=== PATIENT | male | born 1935 | race Caucasian/White ===

== ENCOUNTER 2016-04-16 17:37 | Emergency (ER) | payer OTHER, MEDICARE ==
[2016-04-16 17:43] VITALS: BMI 27.1
--- NOTE | 2016-04-16 18:38 | PDOC ---
History of Present Illness - General History Source: Patient, Old Records Exam Limitations: No Limitations - History of Present Illness Initial Comments: 04/16/16 18:55 The patient is a 81 year old male, with a significant past medical history of chronic matos catheter (last change 03/01/16), AFIB, prostate CA and urinary retention, who presents to the emergency department with a malfunctioning matos catheter, dysuria, frequency, hematuria, bowel incontinence and abdominal pain. He states that his last hematuria episode was 2 weeks ago, which was a small amount. He describes his abdominal pain is localized in the suprapubic region, mild in nature, without radiation. He notes that sitting exacerbates the pain and laying down alleviates the pain. He states that his bowel incontinence started today and that his bowel movements are solid in nature and nonbloody. He states that he usually gets his matos catheter changed once a month. The patient denies chest pain, shortness of breath, headache and dizziness. Denies fever, chills, nausea, vomit, diarrhea and constipation. Allergies: None Past surgical history: bilateral Hip replacement Social history: Social alcohol use. No tobacco or drug use reported Urology - Dr. Sanches <Matt Krishna - Last Filed: 04/16/16 21:36> - General History Source: Patient, Old Records Exam Limitations: No Limitations <Tobias Robert - Last Filed: 04/16/16 21:44> - General Chief Complaint: Urinary Catheter Problem Stated Complaint: URINARY PROBLEM Time Seen by Provider: 04/16/16 18:10 Past History <Matt Krishna - Last Filed: 04/16/16 21:36> - Past Medical History Cancer: Yes (PROSTATE CA) Cardiac Disorders: (a fib) Disorders: Yes (DIFFICULTY VOIDING) Hypercholesterolemia: Yes - Surgical History Orthopedic Surgery: Yes (Bilat Hip Replacement) - Immunization History Immunization Up to Date: Yes - Psycho/Social/Smoking Cessation Hx Anxiety: No Suicidal Ideation: No Smoking History: Never smoked Have you smoked in the past 12 months: No Hx Alcohol Use: Yes (SOCIAL) Drug/Substance Use Hx: No Substance Use Type: None Hx Substance Use Treatment: No <Tobias Robert - Last Filed: 04/16/16 21:44> - Past Medical History Allergies/Adverse Reactions: Allergies Allergy/AdvReac Type Severity Reaction Status Date / Time No Known Allergies Allergy Verified 04/16/16 17:43 Home Medications: Ambulatory Orders Warfarin Sodium [Coumadin] 7 mg PO ASDIR 11/27/14 Warfarin Na [Coumadin] 10 mg PO ASDIR 02/17/16 Acetaminophen [Tylenol] 650 mg PO Q4H PRN #20 tablet 04/16/16 Sulfamethoxazole/Trimethoprim [Bactrim Ds -] 1 tab PO BID #14 tablet 04/16/16 Review of Systems - Review of Systems Comments:: 04/16/16 18:55 GENERAL/CONSTITUTIONAL: No fever or chills. No weakness. HEAD, EYES, EARS, NOSE AND THROAT: No change in vision. No ear pain or discharge. No sore throat. CARDIOVASCULAR: No chest pain or shortness of breath RESPIRATORY: No cough, wheezing, or hemoptysis. GASTROINTESTINAL: +Abdominal pain, bowel incontinence. No nausea, vomiting, diarrhea or constipation. GENITOURINARY: +Dysuria, frequency and dysuria. MUSCULOSKELETAL: No joint or muscle swelling or pain. No neck or back pain. SKIN: No rash NEUROLOGIC: No headache, vertigo, loss of consciousness, or change in strength/ sensation. ENDOCRINE: No increased thirst. No abnormal weight change HEMATOLOGIC/LYMPHATIC: No anemia, easy bleeding, or history of blood clots. ALLERGIC/IMMUNOLOGIC: No hives or skin allergy. <Matt Krishna - Last Filed: 04/16/16 21:36> *Physical Exam - Vital Signs Last Vital Signs Temp Pulse Resp BP Pulse Ox 97.3 F L 89 20 206/104 99 04/16/16 17:39 04/16/16 17:39 04/16/16 17:39 04/16/16 17:39 04/16/16 17:39 - Physical Exam Comments: 04/16/16 18:56 GENERAL: Awake, alert, and fully oriented, in no acute distress HEAD: No signs of trauma, normocephalic, atraumatic EYES: PERRLA, EOMI, sclera anicteric, conjunctiva clear ENT: Auricles normal inspection, hearing grossly normal, nares patent, oropharynx clear without exudates. Moist mucosa NECK: Normal ROM, supple, no lymphadenopathy, JVD, or masses LUNGS: No distress, speaks full sentences, clear to auscultation bilaterally HEART: Regular rate and rhythm, normal S1 and S2, no murmurs, rubs or gallops, peripheral pulses normal and equal bilaterally. ABDOMEN: +Mild suprapubic tenderness. Soft, normoactive bowel sounds. No guarding, no rebound. No masses : +Chronic matos catheter. EXTREMITIES: Normal inspection, Normal range of motion, no edema. No clubbing or cyanosis. NEUROLOGICAL: Cranial nerves II through XII grossly intact. Normal speech, normal gait, no focal sensorimotor deficits SKIN: Warm, Dry, normal turgor, no rashes or lesions noted. <Matt Krishna - Last Filed: 04/16/16 21:36> - Vital Signs Last Vital Signs Temp Pulse Resp BP Pulse Ox 97.3 F L 89 20 206/104 99 04/16/16 17:39 04/16/16 17:39 04/16/16 17:39 04/16/16 17:39 04/16/16 17:39 <Tobias Robert - Last Filed: 04/16/16 21:44> ED Treatment Course - LABORATORY CBC & Chemistry Diagram: 04/16/16 19:10 04/16/16 19:10 <Matt Krishna - Last Filed: 04/16/16 21:36> - LABORATORY CBC & Chemistry Diagram: 04/16/16 19:10 04/16/16 19:10 <Tobias Robert - Last Filed: 04/16/16 21:44> Medical Decision Making - Medical Decision Making 04/16/16 20:59 Dr. Juan Drake was called regarding the patient at 8:58pm Dr. Drake was consulted regarding the patient at 9:16 pm [phone] <Matt Krishna - Last Filed: 04/16/16 21:36> - Medical Decision Making 04/16/16 18:37 A portion of this note was documented by scribe services under my direction. I have reviewed the details of the note, within reason, and agree with the documentation with the following case summary and management plan written by me. Patient treated in the ED. Nursing notes are reviewed and incorporated into the medical decision-making. Vital signs reviewed. Peripheral IV access obtained by the nurse, laboratory studies are drawn and sent, reviewed and interpreted by myself. Vital Signs Temp Pulse Resp BP Pulse Ox 97.3 F L 89 20 206/104 99 04/16/16 17:39 04/16/16 17:39 04/16/16 17:39 04/16/16 17:39 04/16/16 17:39 81 year old male with past medical history of prostate CA, atrial fibrillation, urinary retention status post indwelling Matos catheter, last exchanged on March [address] Sanches presents with dysuria, urinary frequency , suprapubic pain. Denies fevers. Patient has noted that urine continues to flow through the catheter but urine has also been leaking around the catheter. Denies flank pain. The catheter appears to be functional. I suspect that the patient is likely having cystitis. We'll obtain blood work, urine analysis and reassess. 04/16/16 21:37 CBC, BMP 04/16/16 19:10 04/16/16 19:10 CMP Sodium 143 mmol/L (136-145) 04/16/16 19:10 Potassium 3.8 mmol/L (3.5-5.1) 04/16/16 19:10 Chloride 109 mmol/L (98-107) H 04/16/16 19:10 Carbon Dioxide 24 mmol/L (21-32) 04/16/16 19:10 Anion Gap 10 (8-16) 04/16/16 19:10 BUN 10 mg/dL (7-18) D 04/16/16 19:10 Creatinine 0.7 mg/dL (0.7-1.3) 04/16/16 19:10 Creat Clearance w eGFR > 60 (>60) 04/16/16 19:10 Random Glucose 115 mg/dL (74-106) H 04/16/16 19:10 Calcium 9.3 mg/dL (8.5-10.1) 04/16/16 19:10 Total Bilirubin 0.4 mg/dL (0.2-1.0) D 04/16/16 19:10 AST 14 U/L (15-37) L 04/16/16 19:10 ALT 13 U/L (12-78) D 04/16/16 19:10 Alkaline Phosphatase 58 U/L (45-117) 04/16/16 19:10 Total Protein 6.8 g/dl (6.4-8.2) 04/16/16 19:10 Albumin 3.4 g/dl (3.4-5.0) 04/16/16 19:10 Urine Test Results Urine Color Ltyellow 04/16/16 19:10 Urine Appearance Clear 04/16/16 19:10 Urine pH 7.0 (5.0-8.0) 04/16/16 19:10 Ur Specific [place] 1.012 (1.001-1.035) 04/16/16 19:10 Urine Protein 3+ (NEGATIVE) H 04/16/16 19:10 Urine Glucose (UA) Negative (NEGATIVE) 04/16/16 19:10 Urine Ketones Negative (NEGATIVE) 04/16/16 19:10 Urine Blood 3+ (NEGATIVE) H 04/16/16 19:10 Urine Nitrite Negative (NEGATIVE) 04/16/16 19:10 Urine Bilirubin Negative (NEGATIVE) 04/16/16 19:10 Ur Leukocyte Esterase 2+ (NEGATIVE) H 04/16/16 19:10 Urine RBC 1096 /hpf (0-3) 04/16/16 19:10 Urine WBC 11 /hpf (3-5) 04/16/16 19:10 Urine Bacteria Rare /hpf (NONE SEEN) 04/16/16 19:10 Matos catheter was exchanged. More urine had returned but now pinkish in color. I suspect that the patient's prostate may be contributing to the blood in the urine. Pt reports feeling some relief. The blood work demonstrates no acute findings. The patient's urine is noted to be 2+ leuk esterase with 11 WBC. Given the symptoms, we'll treat presumably for cystitis.. Despite the fact that there are only 11 wbc's. However, after reviewing the patient's microbiology, the patient has significant amount of prior urinary tract infections with some intermittent resistance. Has also had a history of pseudomonas and staph aureus. There are some concerns that if I give a fluoroquinolone that this may potentially interact with Coumadin. However, I believe the patient would benefit from some antibiotic at this time. I discussed the case with Dr. Juan Drake. We will initiate with bactrim and the patient can follow up in 2 days in his office for a urine culture follow up. The patient at this time is well-appearing and non toxic appearing. The patient was given the instructions and the plan and he verbalizes understanding and agrees. I discussed the physical exam findings, ancillary test results and final diagnoses with the patient. I answered all of the patient's questions. The patient was satisfied with the care received and felt comfortable with the discharge plan and treatment plan. The patient will call their primary care physician within 24 hours to arrange follow-up and will return to the Emergency Department with any new, persistant or worsening symptoms. <Tobias Robetr - Last Filed: 04/16/16 21:44> *DC/Admit/Observation/Transfer - Attestations Scribe Attestion: 04/16/16 18:57 Documentation prepared by Matt Krishna, acting as emergency medical dispatcher for Tobias Robert MD. <Matt Krishna - Last Filed: 04/16/16 21:36> - Discharge Dispostion Admit: No <Tobias Robert - Last Filed: 04/16/16 21:44> Diagnosis at time of Disposition: Matos catheter problem Qualifiers: Encounter type: initial encounter Qualified Code(s): T83.9XXA - Unspecified complication of genitourinary prosthetic device, implant and graft, initial encounter - Discharge Dispostion Disposition: HOME Condition at time of disposition: Stable - Prescriptions Prescriptions: Sulfamethoxazole/Trimethoprim [Bactrim Ds -] 1 tab PO BID #14 tablet Acetaminophen [Tylenol] 650 mg PO Q4H PRN #20 tablet PRN Reason: Pain - Referrals Referrals: Juan Drake MD [Primary Care Provider] - - Patient Instructions Printed Discharge Instructions: DI for Urinary Tract Infection (UTI), How to Care for Your Matos Catheter -- Male Additional Instructions: Your matos catheter was exchanged here in the ED. As of now, we will treat with bactrim every 12 hours for the next week. However, after discussing the case with Dr. Juan Drake, given your history with urine infections, you will need a very close follow up this Thursday. Call tomorrow to schedule an appointment. Your workup is considered incomplete until you see Dr. Drake. If you have uncontrollable pain, high fevers, despite taking the medications, please return to the ER for further evaluation.
[2016-04-16 19:22] LABS: BASOPHIL 1.2 % (0-2.0); EOSINOPHIL 2.1 % (0-4.5); MCH 31.3 pg (25.7-33.7); MCHC 33.4 g/dl (32.0-35.9); MEAN CELL VOLUME 93.7 fl (80-96); MEAN PLT VOLUME 7.5 fl (7.5-11.1); NEUTROPHILS 68.2 % (42.8-82.8); PLATELET COUNT 198 K/MM3 (134-434); RDW 15.1 % (11.9-15.9); WHITE BLOOD COUNT 3.8 K/mm3 (4.0-10.0)
[2016-04-16 19:33] LABS: INR 2.5 (0.82-1.09)
[2016-04-16 19:36] LABS: ACTIVATED PTT 41.3 SECONDS (26.9-34.4)
[2016-04-16 20:13] LABS: ALBUMIN 3.4 g/dl (3.4-5.0); ANION GAP 10 (8-16); CALCIUM 9.3 mg/dL (8.5-10.1); CO2 24 mmol/L (21-32); GLUCOSE,RANDOM 115 mg/dL (74-106)
[2016-04-16 20:17] LABS: ALK PHOS 58 U/L (45-117); BILIRUBIN,TOTAL 0.4 mg/dL (0.2-1.0); CREATININE 0.7 mg/dL (0.7-1.3); SGOT/AST 14 U/L (15-37); SGPT/ALT 13 U/L (12-78); TOT PROT 6.8 g/dl (6.4-8.2)
[2016-04-16 20:46] LABS: URINE APPEARANCE CLEAR; URINE BILIRUBIN NEGATIVE (NEGATIVE); URINE COLOR LTYELLOW; URINE GLUCOSE (UA) NEGATIVE (NEGATIVE); URINE KETONE NEGATIVE (NEGATIVE); URINE NITRITE NEGATIVE (NEGATIVE); URINE UROBILINOGEN NEGATIVE E.U./dl (0.2-1.0)
[2016-04-16 20:49] LABS: URINE BLOOD 3+ (NEGATIVE); URINE LEUK ESTERASE 2+ (NEGATIVE); URINE PROTEIN 3+ (NEGATIVE)
[2016-04-16 20:51] LABS: URINE BACTERIA RARE /hpf (NONE SEEN); URINE RBC 1096 /hpf (0-3); URINE WBC 11 /hpf (3-5)
[2016-04-16] MEDS ORDERED: ACETAMINOPHEN 325 MG TABLET (FP) PO ONE (21:35)
[2016-04-16] MEDS ORDERED: SULFAMETHOXAZOLE/TRIMETHOPRIM 800MG/160MG D.S. TABLET PO ONE (21:35)
[2016-04-16] MEDS ORDERED: ACETAMINOPHEN 325 MG TABLET (FP) ONE (22:26)
[2016-04-16] MEDS ORDERED: SULFAMETHOXAZOLE/TRIMETHOPRIM 800MG/160MG D.S. TABLET ONE (22:26)
[2016-04-16 22:44] VITALS: BP 140/100; PULSE 88; TEMP 98.6
== END 2016-04-16 22:45 | disposition home or self-care (01) ==
LOC: JER 17:37
PROC: 0T9B70Z Drainage of Bladder with Drainage Device, Via Natural or Artificial Opening (ICD-10-PCS; principal; 2016-04-16)
DX: T83.9XXA Unspecified complication of genitourinary prosthetic device, implant and graft, initial encounter (principal); I48.91 Unspecified atrial fibrillation; Z85.46 Personal history of malignant neoplasm of prostate
CPT/HCPCS: 36415; 51702; 80053; 81003; 81015; 85025; 85610; 85730; 87086; 99282-25

== ENCOUNTER 2016-05-18 10:31 | Emergency (ER) | payer OTHER, MEDICARE ==
[2016-05-18 10:53] VITALS: BP 171/84; PULSE 74; TEMP 97.4; BMI 25.0
[2016-05-18 11:10] LABS: URINE APPEARANCE Cloudy; URINE BILIRUBIN Negative (NEGATIVE); URINE GLUCOSE (UA) Negative (NEGATIVE); URINE KETONE Negative (NEGATIVE); URINE NITRITE Positive (NEGATIVE); URINE PROTEIN Negative (NEGATIVE); URINE UROBILINOGEN 0.2 E.U/dl (0.2-1.0)
[2016-05-18 11:11] LABS: URINE BLOOD 3+ (NEGATIVE); URINE COLOR YELLOW; URINE LEUK ESTERASE 3+ (NEGATIVE)
[2016-05-18 11:21] LABS: URINE BACTERIA MODERATE /hpf (NEGATIVE); URINE RBC 15-20 /hpf (0-3); URINE WBC 20-30 (3-5)
[2016-05-18] MEDS ORDERED: LEVOFLOXACIN 500 MG TABLET (FP) PO ONE (11:33)
[2016-05-18] MEDS ORDERED: LEVOFLOXACIN 500 MG TABLET (FP) ONE (11:34)
--- NOTE | 2016-05-18 11:39 | PDOC ---
History of Present Illness - General Chief Complaint: Urinary Catheter Problem Stated Complaint: catheter problem Time Seen by Provider: 05/18/16 10:37 History Source: Patient, Family Exam Limitations: No Limitations - History of Present Illness Initial Comments: 05/18/16 11:42 CHIEF COMPLAINT: "My catheter is not working." HISTORY OF PRESENT ILLNESS: 81-year-old man with a history of prostate cancer and atrial fibrillation with a chronic indwelling Portillo catheter. Patient presents complaining of his catheter not draining today. He also has severe pressure in the suprapubic region and urgency to urinate but he is unable. He states there is some urine coming out around the catheter. He denies fever. He denies vomiting. He denies back pain. His renal function has always been normal. He has had urinary tract infections in the past. He denies any dysuria or frequency. REVIEW OF SYSTEMS: GENERAL/CONSTITUTIONAL: No fever or chills. No weakness. No weight change. HEAD, EYES, EARS, NOSE AND THROAT: No change in vision. No ear pain or discharge. No sore throat. CARDIOVASCULAR: No chest pain or shortness of breath. RESPIRATORY: No cough, wheezing, or hemoptysis. GASTROINTESTINAL: No nausea, vomiting, diarrhea or constipation. No rectal bleeding. GENITOURINARY: No dysuria, frequency. Positive obstruction of the Portillo catheter with suprapubic discomfort and difficulty urinating. Positive history of chronic indwelling Portillo catheter. Positive history of prostate cancer. Patient is followed by Dr. Robbins, urology. MUSCULOSKELETAL: No joint or muscle swelling or pain. No neck or back pain. SKIN AND BREASTS: No rash or easy bruising. NEUROLOGIC: No headache, vertigo, loss of consciousness, or loss of sensation. PSYCHIATRIC: No depression or anxiety. ENDOCRINE: No increased thirst. No abnormal weight change. HEMATOLOGIC/LYMPHATIC: No anemia, easy bleeding, or history of blood clots. ALLERGIC/IMMUNOLOGIC: No hives or skin allergy. No latex allergy. Past History - Past Medical History Allergies/Adverse Reactions: Allergies Allergy/AdvReac Type Severity Reaction Status Date / Time No Known Allergies Allergy Verified 04/16/16 17:43 Home Medications: Ambulatory Orders Warfarin Sodium [Coumadin] 7 mg PO ASDIR 11/27/14 Warfarin Na [Coumadin -] 10 mg PO ASDIR 02/17/16 Acetaminophen [Tylenol] 650 mg PO Q4H PRN #20 tablet 04/16/16 Levofloxacin [Levaquin -] 500 mg PO DAILY #7 tablet 05/18/16 Cancer: Yes (PROSTATE CA) Cardiac Disorders: (a fib) Disorders: Yes (DIFFICULTY VOIDING) Hypercholesterolemia: Yes - Surgical History Orthopedic Surgery: Yes (Bilat Hip Replacement) - Immunization History Immunization Up to Date: Yes - Psycho/Social/Smoking Cessation Hx Anxiety: No Suicidal Ideation: No Smoking History: Never smoked Have you smoked in the past 12 months: No Hx Alcohol Use: No Drug/Substance Use Hx: No Substance Use Type: None Hx Substance Use Treatment: No *Physical Exam - Vital Signs Last Vital Signs Temp Pulse Resp BP Pulse Ox 97.4 F L 74 18 171/84 100 05/18/16 10:32 05/18/16 10:32 05/18/16 10:32 05/18/16 10:32 05/18/16 10:32 - Physical Exam Comments: 05/18/16 11:44 GENERAL: The patient is awake, alert, and fully oriented, in no acute distress. He states he has to urinate and is uncomfortable. HEAD: Normal with no signs of trauma. EYES: Pupils equal, round and reactive to light, extraocular movements intact, sclera anicteric, conjunctiva clear. ENT: Ears normal, nares patent, oropharynx clear without exudates. Moist mucous membranes. NECK: Normal range of motion, supple without lymphadenopathy, JVD, or masses. LUNGS: Breath sounds equal, clear to auscultation bilaterally. No wheezes, and no crackles. HEART: Regular rate and rhythm, normal S1 and S2 without murmur, rub or gallop. ABDOMEN: There is suprapubic bladder fullness and tenderness in the midline. Bowel sounds are normal. There is no guarding or rebound tenderness. BACK: There is no CVA tenderness. EXTREMITIES: Normal range of motion, no edema. No clubbing or cyanosis. No cords, erythema, or tenderness. NEUROLOGICAL: Cranial nerves II through XII grossly intact. Normal speech, normal gait. PSYCH: Normal mood, normal affect. SKIN: Warm, Dry, normal turgor, no rashes or lesions noted. ED Treatment Course - ADDITIONAL ORDERS Additional order review: Laboratory Results 05/18/16 10:58 Urine Color Yellow Urine Appearance Cloudy Urine pH 7.0 Ur Specific [place] 1.020 Urine Protein Negative Urine Glucose (UA) Negative Urine Ketones Negative Urine Blood 3+ H Urine Nitrite Positive Urine Bilirubin Negative Urine Urobilinogen 0.2 e.u/dl Ur Leukocyte Esterase 3+ H Urine RBC 15-20 Urine WBC 20-30 Urine Bacteria Moderate Medical Decision Making - Medical Decision Making 05/18/16 11:45 Patient with history of prostate CA and atrial fibrillation. Currently he is in normal sinus rhythm with a nice regular rhythm. He is presenting complaining of suprapubic fullness with no drainage from his chronic indwelling Portillo catheter. He denies fever or vomiting. On examination, there is bladder distention. There is no CVA tenderness. The Portillo catheter was changed to a new catheter. There was a lot of drainage of yellow urine around the catheter during the procedure. After placement of the catheter, there was drainage of clear yellow urine from the new Portillo catheter. The patient had complete relief of his suprapubic discomfort and his bladder was decompressed and nontender. Laboratory Results - last 24 hr 05/18/16 10:58 Urine Color Yellow Urine Appearance Cloudy Urine pH 7.0 Ur Specific [place] 1.020 Urine Protein Negative Urine Glucose (UA) Negative Urine Ketones Negative Urine Blood 3+ H Urine Nitrite Positive Urine Bilirubin Negative Urine Urobilinogen 0.2 e.u/dl Ur Leukocyte Esterase 3+ H Urine RBC 15-20 Urine WBC 20-30 Urine Bacteria Moderate Urinalysis notable for 20-30 white cells with 3+ leukocyte esterase. These findings are concerning for possible urinary tract infection. Patient started on Levaquin in the ED and a prescription was sent to his pharmacy for Levaquin. He was advised to follow-up with his urologist on Thursday for final culture results. *DC/Admit/Observation/Transfer Diagnosis at time of Disposition: Obstructed Portillo catheter Qualifiers: Encounter type: initial encounter Qualified Code(s): T83.098A - Other mechanical complication of other indwelling urethral catheter, initial encounter Urinary tract infection Qualifiers: Urinary tract infection type: acute cystitis Hematuria presence: without hematuria Qualified Code(s): N30.00 - Acute cystitis without hematuria - Discharge Dispostion Disposition: HOME Condition at time of disposition: Stable Admit: No - Prescriptions Prescriptions: Levofloxacin [Levaquin -] 500 mg PO DAILY #7 tablet - Referrals Referrals: Ricardo Robbins MD [Staff Physician] - 2 Days - Patient Instructions Printed Discharge Instructions: How to Care for Your Portillo Catheter -- Male Additional Instructions: The day you were evaluated for a blockage of your Portillo catheter. After the Portillo catheter was changed, the urine is flowing well. The urine was tested and shows a possible urinary tract infection. Take Levaquin antibiotic 500 mg daily. The first dose was given in the emergency department and your next dose from your pharmacy is due to be taken on Thursday. Be sure to fill your prescription Thursday morning and take her antibiotic during the day on Thursday. Call Dr. Robbins on Thursday to check the final urine culture results. If the urine culture is positive, you will continue the antibiotic for 7 days. If the urine culture is negative, the antibiotics can be stopped. Follow-up with your doctor or the emergency room if you develop fever or other problems with the catheter. Otherwise follow-up with Dr. Robbins by telephone on Thursday.
[2016-05-18 12:03] LABS: BASOPHIL 1.3 % (0-2.0); EOSINOPHIL 2.7 % (0-4.5); MCH 31.2 pg (25.7-33.7); MCHC 33.3 g/dl (32.0-35.9); MEAN CELL VOLUME 93.7 fl (80-96); MEAN PLT VOLUME 6.9 fl (7.5-11.1); NEUTROPHILS 66.3 % (42.8-82.8); PLATELET COUNT 237 K/MM3 (134-434); RDW 14.3 % (11.9-15.9); WHITE BLOOD COUNT 4.1 K/mm3 (4.0-10.0)
[2016-05-18 12:07] LABS: INR 1.62 (0.82-1.09)
[2016-05-18 12:24] LABS: CREATININE 0.7 mg/dl (0.6-1.3)
== END 2016-05-18 11:49 | disposition home or self-care (01) ==
LOC: FER 10:31
PROC: 0T9B00Z Drainage of Bladder with Drainage Device, Open Approach (ICD-10-PCS; principal; 2016-05-18)
DX: T83.098A Other mechanical complication of other urinary catheter, initial encounter (principal); N30.00 Acute cystitis without hematuria; X58.XXXA Exposure to other specified factors, initial encounter; Y93.9 Activity, unspecified; Y92.9 Unspecified place or not applicable; I48.91 Unspecified atrial fibrillation; Z85.46 Personal history of malignant neoplasm of prostate; Z96.643 Presence of artificial hip joint, bilateral; Z79.01 Long term (current) use of anticoagulants
CPT/HCPCS: 36415; 51702; 80048; 81003; 81015; 85025; 85610; 87086; 87186; 99283-25

== ENCOUNTER 2017-09-03 23:34 | Emergency (ER) | payer OTHER, MEDICARE ==
[2017-09-03 23:50] VITALS: BP 124/58; PULSE 75; TEMP 98.6; BMI 21.2
--- NOTE | 2017-09-04 00:51 | PDOC ---
History of Present Illness - General Chief Complaint: Urinary Catheter Problem Stated Complaint: EARLY PROBLEM Time Seen by Provider: 09/03/17 23:40 - History of Present Illness Initial Comments: This 82-year-old man with a history of atrial fibrillation and metastatic prostate cancer, has indwelling Early catheter and presents with dysuria and obstructed flow of his catheter. Patient was seen by his urologist, 2 days ago. At that time a new catheter was inserted. It performed well until earlier this evening when it became obstructed; patient had significant suprapubic pressure discomfort as well as burning. No fever/ chills/vomiting or back pain. Patient has multiple episodes of urinary tact infection since his indwelling urinary catheter has been placed. No history of urosepsis or other systemic infectious complications. Past History - Past Medical History Allergies/Adverse Reactions: Allergies Allergy/AdvReac Type Severity Reaction Status Date / Time No Known Allergies Allergy Verified 06/19/17 18:36 Home Medications: Ambulatory Orders Warfarin Na [Coumadin -] 10 mg PO MOWEFR 02/17/16 Acetaminophen [Tylenol] 650 mg PO Q4H PRN #20 tablet 04/16/16 Enzalutamide [Xtandi] 80 mg PO DAILY 06/19/17 Simvastatin [Zocor -] 20 mg PO HS 06/19/17 Warfarin Na [Coumadin] 7.5 mg PO SUTUTHSA 06/19/17 Nitrofurantoin Monohyd/M-Cryst [Macrobid -] 100 mg PO BID #14 capsule 09/04/17 Cancer: Yes (PROSTATE CA, METS) Cardiac Disorders: Yes (a fib) COPD: No Disorders: Yes (DIFFICULTY VOIDING) Hypercholesterolemia: Yes - Surgical History Orthopedic Surgery: Yes (Bilat Hip Replacement) - Immunization History Immunization Up to Date: Yes - Suicide/Smoking/Psychosocial Hx Smoking History: Never smoked Have you smoked in the past 12 months: No Hx Alcohol Use: No Drug/Substance Use Hx: No Substance Use Type: None Hx Substance Use Treatment: No Review of Systems - Review of Systems Able to Perform ROS?: Yes Comments:: 12 point review of systems is negative except for what is noted in the history of present illness *Physical Exam - Vital Signs Last Vital Signs Temp Pulse Resp BP Pulse Ox 98.6 F 75 16 124/58 99 09/03/17 23:46 09/03/17 23:46 09/03/17 23:46 09/03/17 23:46 09/03/17 23:46 - Physical Exam Comments: GENERAL: Awake, alert, and fully oriented, in no acute distress HEAD: No signs of trauma EYES: PERRLA, EOMI, sclera anicteric, conjunctiva clear ENT: Auricles normal inspection, hearing grossly normal, nares patent, oropharynx clear without exudates. Moist mucosa NECK: Normal ROM, supple, no lymphadenopathy, JVD, or masses LUNGS: Breath sounds clear and equal. No wheezes, and no crackles HEART: Regular rate and rhythm, normal S1 and S2, no murmurs, rubs or gallops ABDOMEN: Soft, nontender, normoactive bowel sounds. No guarding, no rebound. No masses Moderate discomfort/mild distention suprapubic area EXTREMITIES: Normal range of motion, no edema. No clubbing or cyanosis. No cords, erythema, or tenderness NEUROLOGICAL: Cranial nerves II through XII grossly intact. Normal speech, normal gait SKIN: Warm, Dry, normal turgor, no rashes or lesions noted. Progress Note - Progress Note Progress Note: Under sterile technique, a Early catheter was irrigated by nursing staff. Moderate amount of sediment was noted in the urine. After irrigation, urinary flow was normal and patient had relief of his symptoms. Sample sent for urinalysis/urine C&S UA consistent with UTI: Positive nitrate; 3+ LE, multiple RBCs/WBCs/few bacteria. Urine C&S pending. Review of patient's previous urine cultures revealed 2 of which grew out Staph aureus/Enterococcus; both were sensitive to Macrobid. Patient will be started on Macrobid 100 mg twice a day for. First dose given here in the ER. Patient should follow-up with his urologist(Itzel) within the next few days. Son was instructed to call the office tomorrow to make them aware that his father was in the emergency room and that the urine culture is pending. Follow-up should be with urologist within the next 4-5 days. He should return to the emergency room if he has fever/chills or develops worsening pain/distention *DC/Admit/Observation/Transfer Diagnosis at time of Disposition: Obstructed Early catheter Qualifiers: Encounter type: initial encounter Qualified Code(s): T83.091A - Other mechanical complication of indwelling urethral catheter, initial encounter Urinary tract infection Qualifiers: Urinary tract infection type: acute cystitis Hematuria presence: without hematuria Qualified Code(s): N30.00 - Acute cystitis without hematuria - Discharge Dispostion Disposition: HOME Condition at time of disposition: Stable - Prescriptions Prescriptions: Nitrofurantoin Monohyd/M-Cryst [Macrobid -] 100 mg PO BID #14 capsule - Referrals Referrals: Juan Drake MD [Primary Care Provider] - Ricardo Robbins MD [Staff Physician] - - Patient Instructions Printed Discharge Instructions: DI for Urinary Tract Infection (UTI) Additional Instructions: Macrobid 100 mg twice a day Call 's office tomorrow to let them know that you were in the ER tonight and that urine culture is pending Return to ER if there is any further problems with urine flow or if you have persistent burning Return to ER if you have fever/back pain/nausea or vomiting - Post Discharge Activity
[2017-09-04 00:53] LABS: URINE APPEARANCE SLCLOUDY; URINE BILIRUBIN NEGATIVE (<2.0 mg/dL); URINE COLOR YELLOW; URINE GLUCOSE (UA) NEGATIVE (NEGATIVE); URINE KETONE NEGATIVE (NEGATIVE); URINE NITRITE POSITIVE (NEGATIVE); URINE UROBILINOGEN NEGATIVE mg/dL (0.2-1.0)
[2017-09-04 01:01] LABS: URINE LEUK ESTERASE 3+ (NEGATIVE); URINE PROTEIN 2+ (NEGATIVE)
[2017-09-04 01:04] LABS: AMORP PHOS FEW /hpf (NONE SEEN); EPI CELLS RARE /HPF (FEW); URINE BACTERIA FEW /hpf (NONE SEEN); URINE MUCUS RARE
[2017-09-04] MEDS ORDERED: NITROFURANTOIN MACROCRYSTAL 50 MG CAPSULE (FP) ONE (01:30)
[2017-09-04] MEDS ORDERED: NITROFURANTOIN MACROCRYSTAL 50 MG CAPSULE (FP) PO SCH (01:30)
== END 2017-09-04 01:35 | disposition home or self-care (01) ==
LOC: FER 23:34
DX: T83.091A Other mechanical complication of indwelling urethral catheter, initial encounter (principal); N30.00 Acute cystitis without hematuria
CPT/HCPCS: 81003; 81015; 87086; 87186; 99281-25

== ENCOUNTER 2017-10-02 19:55 | Emergency (ER) | payer OTHER, MEDICARE ==
--- NOTE | 2017-10-02 20:02 | PDOC ---
History of Present Illness - General Chief Complaint: Urinary Catheter Problem Stated Complaint: EARLY BLOCKED Time Seen by Provider: 10/02/17 19:58 History Source: Patient Exam Limitations: No Limitations - History of Present Illness Initial Comments: 10/02/17 20:11 Mr Fernandez is an 82-year-old man with a history of prostate cancer, HLD, atrial fibrillation (on coumadin), chronic indwelling Early catheter, with repeated visits to the ER due to early cathether obstruction (due to have suprapubic cathether placed in 5 days). Patient presents complaining of his catheter not draining today since 5 pm (3 hours prior to arrival in the ER). He also has severe pressure in the suprapubic region and urgency to urinate but he is unable. He states there is some urine coming out around the catheter. He denies fever. He denies flank pain. His renal function has always been normal. He has had urinary tract infections in the past. PMH: HLD, Afib, Prostate Cancer PSH: Bilateral hip replacement Meds: Coumadin, ALL: NKDA Social: Denies drug use REVIEW OF SYSTEMS: GENERAL/CONSTITUTIONAL: No fever or chills. No weakness. No weight change. HEAD, EYES, EARS, NOSE AND THROAT: No change in vision. No ear pain or discharge. No sore throat. CARDIOVASCULAR: No chest pain or shortness of breath. RESPIRATORY: No cough, wheezing, or hemoptysis. GASTROINTESTINAL: No nausea, vomiting, diarrhea GENITOURINARY: Yes: obstruction of the Early catheter with suprapubic discomfort , urinating around the cathether MUSCULOSKELETAL: No joint or muscle swelling or pain. No neck or back pain. SKIN: No rash or easy bruising. NEUROLOGIC: No headache, vertigo, loss of consciousness, or loss of sensation. PHYSICAL EXAM GENERAL: The patient is awake, alert, and fully oriented, in no acute distress. He states he has to urinate and is uncomfortable. HEAD: Normal EYES: Pupils equal, round and reactive to light ENT: Ears normal, nares patent, oropharynx clear without exudates. Moist mucous membranes. NECK: Normal range of motion, supple LUNGS: Breath sounds equal, clear to auscultation bilaterally. No wheezes, and no crackles. HEART: Regular rate and rhythm, normal S1 and S2 without murmur, rub or gallop. ABDOMEN: There is no suprapubic tenderness or fullness to palpation, there is no guarding or rebound tenderness. BACK: There is no CVA tenderness. EXTREMITIES: Normal range of motion, no edema. NEUROLOGICAL: Cranial nerves II through XII grossly intact. Normal speech, normal gait. 10/03/17 02:10 Past History - Past Medical History Allergies/Adverse Reactions: Allergies Allergy/AdvReac Type Severity Reaction Status Date / Time No Known Allergies Allergy Verified 06/19/17 18:36 Home Medications: Ambulatory Orders Warfarin Na [Coumadin -] 10 mg PO MOWEFR 02/17/16 Acetaminophen [Tylenol] 650 mg PO Q4H PRN #20 tablet 04/16/16 Enzalutamide [Xtandi] 80 mg PO DAILY 06/19/17 Simvastatin [Zocor -] 20 mg PO HS 06/19/17 Warfarin Na [Coumadin] 7.5 mg PO SUTUTHSA 06/19/17 Nitrofurantoin Monohyd/M-Cryst [Macrobid -] 100 mg PO BID #14 capsule 09/04/17 Warfarin Sodium [Coumadin] 5 mg PO Q2D 09/17/17 Warfarin Sodium [Coumadin] 10 mg PO Q2D 09/17/17 Xtandi 1 09/17/17 Tamsulosin HCl [Flomax] 0.4 mg PO HS #10 capsule 10/03/17 Cancer: Yes (PROSTATE CA, METS) Cardiac Disorders: Yes (a fib) CVA: No COPD: No Disorders: Yes (PROSTATE CANCER) Hypercholesterolemia: Yes - Surgical History Orthopedic Surgery: Yes (Bilat Hip Replacement) - Immunization History Immunization Up to Date: Yes - Suicide/Smoking/Psychosocial Hx Smoking History: Never smoked Have you smoked in the past 12 months: No Hx Alcohol Use: No Drug/Substance Use Hx: No Substance Use Type: None, Alcohol Hx Substance Use Treatment: No Medical Decision Making - Medical Decision Making 10/02/17 20:15 Patient with history of prostate CA and atrial fibrillation. Early cathether is indeed blocked Will change cathether Unable to remove cathether... Multiple attempts made Call placed to Dr Robbins Recommends CT to eval for calcified cathether balloo CT performed It is limited as pt has bilateral hip replacements 10/02/17 22:[address] Robbins, to review CT 10/02/17 23:19 Call placed again Case reviewed with him He states if cathether can't be removed, then it should not be forced Pt can be preped for surgical intervention tomorrow, should be placed on observation 10/02/17 23:37 Pt insisting that cathether be removed Early cathether removed after doing a vigorous twisting motion Pt shortly there after voided Will send labs Will update Dr Robbins 10/03/17 00:[address] Robbins Recommends NOT replacing cathether at this time given the frequency of cathether obstruction and the difficulty with cathether removal. Recommends allowing pt to void naturally (Which he has demonstrated he can do) Pt should return for early IF in urinary retention We have discussed placing cathether vs. observation Pt will go home He will return should he demonstrate an inability to void Clinical Impression: early cathether obstruction, initial presentation 10/03/17 02:04 *DC/Admit/Observation/Transfer Diagnosis at time of Disposition: Early catheter problem Qualifiers: Encounter type: initial encounter Qualified Code(s): T83.9XXA - Unspecified complication of genitourinary prosthetic device, implant and graft, initial encounter - Discharge Dispostion Disposition: HOME Condition at time of disposition: Stable Decision to Admit order: No - Prescriptions Prescriptions: Tamsulosin HCl [Flomax] 0.4 mg PO HS #10 capsule - Referrals Referrals: Ricardo Robbins MD [Staff Physician] - - Patient Instructions Printed Discharge Instructions: How to Care for Your Early Catheter -- Male, DI for Urinary Retention in Men Additional Instructions: Mr. Fernandez Thank you for coming into the emergency department today. Please monitoring yourself for inability to urinate, lower abdominal distention. If you noticed this, please return to the emergency department for Early catheter placement. Please discontinue your Coumadin now. Please contact Dr. Robbins's office for reevaluation. Monitor yourself for fevers, chills, flank pain. Please feel free to return to the ER for any other concerns or complaints - Post Discharge Activity
[2017-10-02 20:04] VITALS: TEMP 97.6; BMI 25.8
[2017-10-02] MEDS ORDERED: ACETAMINOPHEN 325 MG TABLET (FP) PO ONE (21:50)
[2017-10-02] MEDS ORDERED: ACETAMINOPHEN 325 MG TABLET (FP) ONE (21:59)
[2017-10-02] MEDS ORDERED: LIDOCAINE HCL 2% JELLY 10 ML CARTRIDGE ONE (23:43)
[2017-10-02] MEDS ORDERED: LIDOCAINE HCL 2% JELLY 10 ML CARTRIDGE UR ONE (23:43)
[2017-10-03 00:35] VITALS: BP 122/68; PULSE 72
== END 2017-10-03 01:00 | disposition home or self-care (01) ==
LOC: FER 19:55
DX: T83.098A Other mechanical complication of other urinary catheter, initial encounter (principal); Y84.8 Other medical procedures as the cause of abnormal reaction of the patient, or of later complication, without mention of misadventure at the time of the procedure; Y92.9 Unspecified place or not applicable; E03.9 Hypothyroidism, unspecified; I48.91 Unspecified atrial fibrillation; Z79.01 Long term (current) use of anticoagulants; Z85.46 Personal history of malignant neoplasm of prostate; Z96.643 Presence of artificial hip joint, bilateral
CPT/HCPCS: 74176-TC; 99281-25

== ENCOUNTER 2017-10-07 05:07 | Day surgery (SDC) | payer OTHER, MEDICARE ==
[2017-10-06 15:19] VITALS: BMI 25.8
[2017-10-07 15:49] VITALS: BP 142/73; PULSE 71; TEMP 98.1
== END 2017-10-07 15:45 | disposition home or self-care (01) ==
LOC: JRADIR 05:07 → MERGE 10:00 → JRADIR 15:45
PROVIDERS: ATTEND Urology
PROC: 0T9B30Z Drainage of Bladder with Drainage Device, Percutaneous Approach (ICD-10-PCS; principal; 2017-10-07)
DX: C61 Malignant neoplasm of prostate (principal); R33.8 Other retention of urine
CPT/HCPCS: 51102; 76098-TC-FY; 76380-TC; 87086; 87186; 87899; A4358; C1729; C1769

== ENCOUNTER 2018-02-02 11:39 | Inpatient (IN) | payer OTHER, MEDICARE ==
--- NOTE | 2018-02-02 12:07 | PDOC ---
History of Present Illness - General Chief Complaint: Weakness Stated Complaint: WEAKNESS Time Seen by Provider: 02/02/18 11:57 - History of Present Illness Initial Comments: 02/02/18 12:31 The patient is an 82 year old male with a history of HLD, Afib, Metastatic Prostate CA who presents for evaluation of cough and weakness. The patient is somewhat a poor historian and reports a feeling of generalized weakness for an unknown amount of time. He also notes a non-productive cough, but is does not know how long it has been going on for. The patient reports generalized body aches and pains due to bone mets but otherwise denies fevers, chills, SOB, chest pain, nausea, vomiting, abdominal pain, or changes with urination or bowel movements. Past History - Past Medical History Allergies/Adverse Reactions: Allergies Allergy/AdvReac Type Severity Reaction Status Date / Time No Known Allergies Allergy Verified 02/02/18 11:47 Home Medications: Ambulatory Orders RX: Simvastatin 20 mg PO HS 10/07/17 Warfarin Na [Coumadin] 10 mg PO ASDIR 10/07/17 Warfarin Na [Coumadin] 5 mg PO ASDIR 02/02/18 Cancer: Yes (PROSTATE CA, METS) Cardiac Disorders: Yes (a fib) CVA: No COPD: No Disorders: Yes (PROSTATE CANCER) Hypercholesterolemia: Yes - Surgical History Orthopedic Surgery: Yes (Bilat Hip Replacement) - Immunization History Immunization Up to Date: Yes - Suicide/Smoking/Psychosocial Hx Smoking History: Never smoked Have you smoked in the past 12 months: No Hx Alcohol Use: No Drug/Substance Use Hx: No Substance Use Type: None, Alcohol Hx Substance Use Treatment: No Review of Systems - Review of Systems Comments:: 02/02/18 12:33 Constitutional: Fatigue, Body aches. No fevers, chills, HEENT: No Rhinorrhea, nasal congestion, visual changes Cardiovascular: No chest pain, syncope, palpitations, lightheadedness Respiratory: Cough. No SOB, Hemoptysis, Gastrointestinal: No Abdominal pain, Nausea, Vomiting, Constipation, Diarrhea, Melena Genitourinary: No Dysuria, Frequency, Urgency, Hesitancy, Hematuria, Flank pain Musculoskeletal: No Myalgia, arthralgia Skin: No rashes, itching, bruising, pallor Neurologic: No Headache, Dizziness, Numbness, Weakness, or Tingling Psychiatric: No Hallucinations. No SI or HI *Physical Exam - Vital Signs Last Vital Signs Temp Pulse Resp BP Pulse Ox 97.5 F L 83 18 120/65 96 02/02/18 11:40 02/02/18 11:40 02/02/18 11:40 02/02/18 11:40 02/02/18 11:40 - Physical Exam Comments: 02/02/18 12:34 General Appearance: Chronically ill appearing. No Apparent Distress HEENT: No Pharyngeal Erythema, Tonsillar Exudate, Tonsillar Erythema Neck: No Cervical Lymphadenopathy Respiratory/Chest: Lungs Clear, Normal Breath Sounds. No Crackles, Rales, Rhonchi, Wheezing Cardiovascular: Regular Rhythm, Regular Rate. No Murmur, Gallops, Rubs Gastrointestinal/Abdominal: Normal Bowel Sounds, Soft. Suprapubic catheter in place. No Guarding, Rebound, Tenderness Musculoskeletal: No CVA Tenderness Extremity: Normal Capillary Refill Integumentary: Normal Color, Dry, Warm Neurologic: Fully Oriented, Alert, Normal Mood/Affect, Normal Response, Heart Score/ECG Review #1 ECG reviewed & interpreted by me at: 12:35 General ECG Interpretation: Sinus Rhythm, Normal Rate, Normal Intervals, No acute ischemic changes ED Treatment Course - LABORATORY CBC & Chemistry Diagram: 02/02/18 12:38 02/02/18 12:38 Medical Decision Making - Medical Decision Making 02/02/18 12:36 The patient is an 82 year old male with a history of HLD, Afib, Metastatic Prostate CA who presents for evaluation of cough and weakness. Differential includes but is not limited to: UTI, Pneumonia, Arrhythmia, Infectious, Metabolic Derangement. Given the patient's history and physical exam, we will obtain a cbc, cmp, troponin, ua, coags, ekg, chest plain film to evaluate further. We will continue to monitor and reassess while here in the ED. 02/02/18 16:35 CBC, cmp, troponin were unremarkable. Chest plain film is unchanged. However due to the patient's symptoms and history of UTIs, we will start the patient on antibiotics for a presumed UTI and admit the patient to the hospital. The patient was noted to be in urinary retention as well and his suprapubic catheter was noted to be clogged and was replaced with an 18 kittitian matos with drainage of urine. We discussed the case with Dr. Drake who accepted the patient for admission. *DC/Admit/Observation/Transfer Diagnosis at time of Disposition: Weakness UTI (urinary tract infection) Qualifiers: Urinary tract infection type: site unspecified Hematuria presence: without hematuria Qualified Code(s): N39.0 - Urinary tract infection, site not specified - Discharge Dispostion Condition at time of disposition: Stable Decision to Admit order: Yes - Referrals - Patient Instructions - Post Discharge Activity
[2018-02-02] MEDS ORDERED: SODIUM CHLORIDE 1,000 ML IV STA ×2 (12:37→14:59)
[2018-02-02 12:52] LABS: BASO % 0.2 % (0-2.0); EOS % 0.4 % (0-4.5); HEMATOCRIT 30.8 % (35.4-49); HEMOGLOBIN 9.9 GM/dL (11.7-16.9); LYMPH % 7.8 % (8-40); MCH 30.4 pg (25.7-33.7); MCHC 32.3 g/dl (32.0-35.9); MEAN CELL VOLUME 94.2 fl (80-96); MEAN PLT VOLUME 7.5 fl (7.5-11.1); NEUT % 86.6 % (42.8-82.8); PLATELET COUNT 215 K/MM3 (134-434); RBC 3.27 M/mm3 (4.00-5.60); RDW 15.1 % (11.9-15.9); WHITE BLOOD COUNT 4.5 K/mm3 (4.0-10.0)
[2018-02-02 13:00] LABS: INR 3.88 (0.83-1.09); PROTHROMBIN TIME (PATIENT) 46.4 SEC (9.7-13.0)
[2018-02-02 13:09] LABS: ACTIVATED PTT 38.6 SECONDS (25.2-36.5)
[2018-02-02 13:37] LABS: ALBUMIN 2.3 g/dl (3.4-5.0); ALK PHOS 79 U/L (45-117); ANION GAP 9 MMOL/L (8-16); BILIRUBIN,TOTAL 0.4 mg/dL (0.2-1); BLOOD UREA NITROGEN 11 mg/dL (7-18); CALCIUM 8.3 mg/dL (8.5-10.1); CHLORIDE 104 mmol/L (98-107); CO2 25 mmol/L (21-32); CREATININE 0.6 mg/dL (0.55-1.3); GLUCOSE,RANDOM 124 mg/dL (74-106); SGOT/AST 23 U/L (15-37); SGPT/ALT 19 U/L (13-61); SODIUM 137 mmol/L (136-145); TOT PROT 6.6 g/dl (6.4-8.2)
--- NOTE | 2018-02-02 13:37 | PDOC ---
Attending Attestation - Resident Resident Name: Garth Goodrichel - ED Attending Attestation I have performed the following: I have examined & evaluated the patient, The case was reviewed & discussed with the resident, I agree w/resident's findings & plan - HPI HPI: 02/02/18 14:12 Miguel 82 YOM with a history of prostate cancer, HLD, atrial fibrillation ( on coumadin), chronic indwelling Portillo catheter for metastatic prostate ca presenting with increased generalized weakness, decreased appetite and worsening lower back pain x 2-3 weeks, worse this week. +cough and congestion.. Pt is poor historian, but son at bedside to corroborate history. Prior urine cx +Pseudomonas, E. faecalis, S. Aureus. Full code status. - Physicial Exam PE: 02/02/18 14:12 In mild distress 2/2 pain, cachectic. PERRL, EOMI, very dry mucus membranes, nl conjunctiva; neck supple. lungs clear, RRR, faint heart sounds, abdomen soft nontender. +suprapubic catheter in place, c/d/i. Nontender around site. +lower back TTP (chronic) and AGUILAR x4, no focal neuro deficits. No peripheral edema. normal color for ethnicity, WWP. - Medical Decision Making 02/02/18 14:13 [facility] 82 [facility] with a history of prostate cancer, HLD, atrial fibrillation ( on coumadin), chronic indwelling Portillo catheter for metastatic prostate ca presenting with increased generalized weakness, decreased appetite and worsening lower back pain x 2-3 weeks Vital signs reviewed, wnl. no fever here. Prior notes reviewed, including admissions, discharges and consultations. laboratory results and imaging reviewed, basic labs and lytes wnl, notable for mildly supratherapeutic INR 3.88 (should be 2-3). Septic workup including urine cx, blood cx pending. lactic acid elevated, hypoperf vs dehydration vs infection. given fluids UA_pending, unable to provide sample, prior urine cx and sensitivities reviewed , +Pseudomonas, E. faecalis, S. Aureus. Will given empiric Zosyn/Vancomycin for coverage of suspected UTI/chronic colonizer and infection as source of increased weakness vs malignancy CXR_pleural calcifications and interstitial markings, baseline unchanged from prior imaging. Cardiac panel_neg trop, less likely cardiac. EKG normal sinus rhythm, no interval abnormalities, narrow QRS, ST and T wave segments and morphology normal. Nonspecific T wave abnormalities ED course: uncomplicated. IV abx, hydration, analgesia Dispo: Admit for suspected catheter related UTI/chronic colonizer, increased weakness, dehydration, lactic acidosis and pain control/metastatic prostate ca.. Discussed results and management plan with pt and family member at bedside , agree with impression and plan PCP Dr Drake, admit to service. 02/02/18 15:27 Heart Score/ECG Review - ECG Impressions Normal ECG: No Comment:: 02/02/18 14:09 EKG normal sinus rhythm, no interval abnormalities, narrow QRS, ST and T wave segments and morphology normal. Nonspecific T wave abnormalities
[2018-02-02] MEDS ORDERED: VANCOMYCIN 1,000 MG in DEXTROSE 5%-WATER - 250 ML IVPB ONE (13:43)
[2018-02-02] MEDS ORDERED: VANCOMYCIN 1 GRAM (PRE-DOCKED) 1,000 MG/250 ML BAG IVPB ONE (13:50)
[2018-02-02] MEDS ORDERED: PIPERACILLIN/TAZOB 4.5 GM 4.5 GM/100 ML BAG IVPB ONE (13:50)
[2018-02-02] MEDS ORDERED: morphine CARPU-JECT 4 MG/1 ML DISP.SYRIN IVPUSH ONE (13:52)
[2018-02-02] MEDS: PIPERACILLIN/TAZOB 4.5 GM 4.5 GM in DEXTROSE 5%-WATER 100 ML IVPB ONE ×2 (13:53→14:08)
[2018-02-02] MEDS ORDERED: morphine SULFATE 4 MG/ML VIAL ONE (14:03)
--- NOTE | 2018-02-02 15:19 | EKG ---
Test Reason : Blood Pressure : / mmHG Vent. Rate : 080 BPM Atrial Rate : 080 BPM P-R Int : 172 ms QRS Dur : 086 ms QT Int : 380 ms P-R-T Axes : 055 063 043 degrees QTc Int : 438 ms NORMAL SINUS RHYTHM NONSPECIFIC ST ABNORMALITY ABNORMAL ECG WHEN COMPARED WITH ECG OF 19-JUN-2017 20:52, NO SIGNIFICANT CHANGE WAS FOUND Confirmed by Mark Charlton MD ([id number]) on 02/02/2018 3:19:42 PM Referred By: Confirmed By:Mark Charlton MD
[2018-02-02 16:55] LABS: URINE APPEARANCE CLOUDY; URINE BILIRUBIN NEGATIVE (<2.0 mg/dL); URINE COLOR DKYELLOW; URINE GLUCOSE (UA) NEGATIVE (NEGATIVE); URINE KETONE TRACE (NEGATIVE); URINE LEUK ESTERASE 3+ (NEGATIVE); URINE NITRITE POSITIVE (NEGATIVE); URINE PROTEIN 1+ (NEGATIVE); URINE UROBILINOGEN 4.0 E.U/dl mg/dL (0.2-1.0)
[2018-02-02 17:13] LABS: EPI CELLS RARE /HPF (FEW); URINE BACTERIA MANY /hpf (NONE SEEN); URINE MUCUS RARE
--- NOTE | 2018-02-02 19:18 | HP ---
Admitting History and Physical - Primary Care Physician PCP: Juan Drake - Admission Chief Complaint: [place]kaness. Decreased PO intake History of Present Illness: Pt with significant Hx/o A fib on AC, Metastatic prostate CA with hip pain, suprapubic cath, leaves alone, found by his son weak, noticed to have minimal PO intake ( food and water). 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 Cardiovascular: Yes: AFIB (on AC), HTN, Hyperlipdemia Renal/: Yes: Cancer (meatstatic prostate CA) Heme/Onc: Yes: Anemia - Past Surgical History Past Surgical History: Yes: Joint Replacement - Smoking History Smoking history: Never smoked Have you smoked in the past 12 months: No - Alcohol/Substance Use Hx Alcohol Use: No Home Medications - Allergies Allergies/Adverse Reactions: Allergies Allergy/AdvReac Type Severity Reaction Status Date / Time No Known Allergies Allergy Verified 02/02/18 11:47 - Home Medications Home Medications: Ambulatory Orders Simvastatin 20 mg PO HS 10/07/17 Warfarin Na [Coumadin] 10 mg PO ASDIR 10/07/17 Warfarin Na [Coumadin] 5 mg PO ASDIR 02/02/18 Review of Systems - Review of Systems Constitutional: reports: Weakness. denies: Chills, Fever Eyes: denies: Blurred Vision, Double Vision HENT: denies: Difficult Swallowing, Ear Discharge, Ear Pain, Throat Pain Neck: reports: Pain on Movement (occasionally, not now) Cardiovascular: denies: Chest Pain, Edema, Palpitations Respiratory: denies: Cough, SOB, SOB on Exertion, Wheezing Gastrointestinal: denies: Abdominal Pain, Diarrhea, Nausea, Rectal Bleeding, Vomiting Genitourinary: denies: Flank Pain, Hematuria Musculoskeletal: denies: Back Pain Integumentary: denies: Blister, Rash Neurological: reports: Confusion (regarding the place), Weakness. denies: Change in LOC, Change in Speech, Dizziness, Numbness Endocrine: denies: Excessive Sweating, Intolerance to Cold Hematology/Lymphatic: denies: Easily Bruised, Excessive Bleeding Psychiatric: denies: Anxiety, Depression Physical Examination Vital Signs: Vital Signs Temperature 98.6 F 02/02/18 16:42 Pulse Rate 89 02/02/18 16:42 Respiratory Rate 19 02/02/18 16:42 Blood Pressure 155/69 02/02/18 16:42 O2 Sat by Pulse Oximetry (%) 99 02/02/18 16:42 Constitutional: Yes: No Distress, Calm Eyes: Yes: Conjunctiva Clear, EOM Intact HENT: Yes: Normocephalic. No: Epistaxis, Rhinnorhea Neck: Yes: Trachea Midline. No: Lymphadenopathy Cardiovascular: Yes: Regular Rate and Rhythm, S1, S2 Respiratory: Yes: Regular, CTA Bilaterally. No: Rales Gastrointestinal: Yes: Normal Bowel Sounds, Soft. No: Tenderness ...Rectal Exam: Yes: Deferred Renal/: No: CVA Tenderness - Left, CVA Tenderness - Right Musculoskeletal: No: Joint Swelling, Muscle Pain Edema: No Neurological: Yes: Alert, Oriented, Other (motor and sensory evaluation is symmetric in UE/ LE/ face) Psychiatric: Yes: Alert Labs: CBC, BMP 02/02/18 12:38 02/02/18 12:38 Imaging - Results Chest X-ray: Report Reviewed Problem List - Problems (1) Weakness Code(s): R53.1 - WEAKNESS (2) Dehydration Code(s): E86.0 - DEHYDRATION (3) Prostate cancer metastatic to bone Code(s): C61 - MALIGNANT NEOPLASM OF PROSTATE; C79.51 - SECONDARY MALIGNANT NEOPLASM OF BONE (4) Urinary tract infection Code(s): N39.0 - URINARY TRACT INFECTION, SITE NOT SPECIFIED Qualifiers: Urinary tract infection type: site unspecified Hematuria presence: without hematuria Qualified Code(s): N39.0 - Urinary tract infection, site not specified (5) Suprapubic catheter Code(s): Z93.59 - OTHER CYSTOSTOMY STATUS (6) Blocked suprapubic catheter Code(s): T83.090A - [facility] COMPL OF CYSTOSTOMY CATHETER, INITIAL ENCOUNTER (7) Atrial fibrillation Code(s): I48.91 - UNSPECIFIED ATRIAL FIBRILLATION (8) Supratherapeutic INR Assessment/Plan: Coumadin on hold tonight INR in AM Code(s): R79.1 - ABNORMAL COAGULATION PROFILE (9) Hyperlipidemia Code(s): E78.5 - HYPERLIPIDEMIA, UNSPECIFIED (10) Anemia Code(s): D64.9 - ANEMIA, UNSPECIFIED Assessment/Plan IVF IV antibiotic ID consult AM labs
[2018-02-02] MEDS ORDERED: cefTRIAXone SODIUM 1 GM VIAL ONE (21:35)
[2018-02-02] MEDS ORDERED: DEXTROSE 5%-WATER - 50 ML IVPB ONE (21:36)
[2018-02-02] MEDS: ATORVASTATIN CA 20 MG TABLET (FP) PO SCH (21:58)
[2018-02-02] MEDS: SODIUM CHLORIDE 1,000 ML IV SCH (21:58)
[2018-02-02] MEDS: ACETAMINOPHEN 325 MG TABLET (FP) PO PRN (21:58)
[2018-02-02] MEDS ORDERED: CEFTRIAXONE 1 GM in DEXTROSE 5%-WATER - 50 ML IVPB SCH (22:00)
[2018-02-03 07:52] LABS: HEMOGLOBIN 8.8 GM/dL (11.7-16.9); MCH 30.9 pg (25.7-33.7); MCHC 32.7 g/dl (32.0-35.9); MEAN CELL VOLUME 94.5 fl (80-96); MEAN PLT VOLUME 7.8 fl (7.5-11.1); PLATELET COUNT 197 K/MM3 (134-434); RBC 2.86 M/mm3 (4.00-5.60); RDW 14.8 % (11.9-15.9); WHITE BLOOD COUNT 3.7 K/mm3 (4.0-10.0)
[2018-02-03 08:19] LABS: PROTHROMBIN TIME (PATIENT) 48.2 SEC (9.7-13.0)
[2018-02-03 09:20] LABS: ALK PHOS 70 U/L (45-117); ANION GAP 11 MMOL/L (8-16); BILIRUBIN,TOTAL 0.3 mg/dL (0.2-1); BLOOD UREA NITROGEN 8 mg/dL (7-18); CALCIUM 7.8 mg/dL (8.5-10.1); CHLORIDE 109 mmol/L (98-107); CO2 20 mmol/L (21-32); CREATININE 0.4 mg/dL (0.55-1.3); GLUCOSE,RANDOM 104 mg/dL (74-106); POTASSIUM 3.5 mmol/L (3.5-5.1); SGOT/AST 17 U/L (15-37); SGPT/ALT 14 U/L (13-61); SODIUM 140 mmol/L (136-145); TOT PROT 5.8 g/dl (6.4-8.2)
[2018-02-03 09:36] LABS: INR 4.03 (0.83-1.09)
--- NOTE | 2018-02-03 11:37 | PN ---
Progress Note, Physician History of Present Illness: Pt w/o SOB, CP, palpitations,abd pain, N, V, diarrhea, hips or legs pain. Pt is feeling weak - Current Medication List Current Medications: Active Medications Acetaminophen (Tylenol -) 650 mg PO Q6H PRN PRN Reason: PAIN LEVEL 1-3 Last Admin: 02/02/18 21:58 Dose: 650 mg Atorvastatin Calcium (Lipitor -) 20 mg PO HS [facility] Last Admin: 02/02/18 21:58 Dose: 20 mg Sodium Chloride (Normal Saline -) 1,000 mls @ 50 mls/hr IV ASDIR [facility] Last Admin: 02/02/18 21:58 Dose: 50 mls/hr Ceftriaxone Sodium 1 gm/ (Dextrose) 50 mls @ 100 mls/hr IVPB HS [facility] Last Admin: 02/02/18 21:58 Dose: 100 mls/hr Morphine Sulfate (Morphine Sulfate) 2 mg IVPUSH Q3H PRN PRN Reason: PAIN LEVEL 4 - 6 - Objective Vital Signs: Vital Signs Temperature 98.4 F 02/03/18 05:33 Pulse Rate 76 02/03/18 05:33 Respiratory Rate 20 02/03/18 05:33 Blood Pressure 148/71 02/03/18 05:33 O2 Sat by Pulse Oximetry (%) 99 02/02/18 20:17 Constitutional: Yes: No Distress, Calm Cardiovascular: Yes: Regular Rate and Rhythm, S1, S2 Respiratory: Yes: Regular, CTA Bilaterally. No: Rales Gastrointestinal: Yes: Normal Bowel Sounds, Soft. No: Palpable Mass, Tenderness Edema: No Neurological: Yes: Alert, Oriented Labs: CBC, BMP 02/03/18 06:50 02/03/18 06:50 INR, PTT INR 4.03 (0.83-1.09) H* 02/03/18 06:50 Problem List - Problems (1) Weakness Code(s): R53.1 - WEAKNESS (2) Dehydration Code(s): E86.0 - DEHYDRATION (3) Prostate cancer metastatic to bone Code(s): C61 - MALIGNANT NEOPLASM OF PROSTATE; C79.51 - SECONDARY MALIGNANT NEOPLASM OF BONE (4) Urinary tract infection Code(s): N39.0 - URINARY TRACT INFECTION, SITE NOT SPECIFIED Qualifiers: Urinary tract infection type: site unspecified Hematuria presence: without hematuria Qualified Code(s): N39.0 - Urinary tract infection, site not specified (5) Suprapubic catheter Code(s): Z93.59 - OTHER CYSTOSTOMY STATUS (6) Blocked suprapubic catheter Code(s): T83.090A - [facility] COMPL OF CYSTOSTOMY CATHETER, INITIAL ENCOUNTER (7) Atrial fibrillation Code(s): I48.91 - UNSPECIFIED ATRIAL FIBRILLATION (8) Supratherapeutic INR Code(s): R79.1 - ABNORMAL COAGULATION PROFILE (9) Hyperlipidemia Code(s): E78.5 - HYPERLIPIDEMIA, UNSPECIFIED (10) Anemia Code(s): D64.9 - ANEMIA, UNSPECIFIED Assessment/Plan Cont IVF Cont IV antibiotic H/ H is trending down; send Iron studies. INR is elevated; Hold Coumadin today, to monitor INR. ID consult. To f/u Cx AM labs
--- NOTE | 2018-02-03 14:30 | CON.ID ---
Consult Consult Specialty:: infectious disease Referred by:: dr hatch Reason for Consultation:: possible UTI - History of Present Illness Chief Complaint: weakness History of Present Illness: 82 yo man with metastatic prostate cancer to bone, admitted with progressive weakness no fevers his son moved in about one month agot to care for him- he lives alone +cough at home, none now has not been eating unable to ambulate last 3 days due to weakness prior was using walker- minimal ambulaiton significant deterioration over the last month +pain, taking oxycodone but it is not helping no fevers urologist- dr goodson - Past Medical History [employer]: Yes: CVA Cardio/Vascular: Yes: AFIB (on AC), HTN, Hyperlipdemia Renal/: Yes: Cancer (meatstatic prostate CA) - Past Surgical History Past Surgical History: Yes: Joint Replacement - Alcohol/Substance Use Hx Alcohol Use: No - Smoking History Smoking history: Never smoked Have you smoked in the past 12 months: No - Social History Usual Living Arrangement: Alone ADL: Independent Occupation: Place of : Other ([facility]) History of Recent Travel: No Home Medications - Allergies Allergies/Adverse Reactions: Allergies Allergy/AdvReac Type Severity Reaction Status Date / Time No Known Allergies Allergy Verified 02/02/18 11:47 - Home Medications Home Medications: Ambulatory Orders Simvastatin 20 mg PO HS 10/07/17 Warfarin Na [Coumadin] 10 mg PO ASDIR 10/07/17 Warfarin Na [Coumadin] 5 mg PO ASDIR 02/02/18 Family Disease History - Family Disease History Family History: Unable to Obtain Review of Systems - Review of Systems Constitutional: reports: Loss of Appetite, Unintentional Wgt. Loss. denies: Chills, Fever Eyes: reports: No Symptoms HENT: reports: No Symptoms Neck: reports: No Symptoms Cardiovascular: reports: No Symptoms Respiratory: reports: Cough Gastrointestinal: reports: No Symptoms Genitourinary: reports: No Symptoms Musculoskeletal: reports: Other (pain all over) Physical Exam Vital Signs: Vital Signs Temperature 98.0 F 02/03/18 14:00 Pulse Rate 89 02/03/18 14:00 Respiratory Rate 21 H 02/03/18 14:00 Blood Pressure 126/55 L 02/03/18 14:00 O2 Sat by Pulse Oximetry (%) 97 02/03/18 09:00 Constitutional: Yes: Well Nourished, No Distress, Calm Eyes: Yes: Conjunctiva Clear HENT: Yes: Atraumatic, Normocephalic Neck: Yes: Supple Cardiovascular: Yes: Regular Rate and Rhythm Respiratory: Yes: Regular, CTA Bilaterally Gastrointestinal: Yes: Normal Bowel Sounds, Soft ...Rectal Exam: Yes: Deferred Musculoskeletal: Yes: WNL Extremities: Yes: WNL Edema: Yes Edema: LLE: Trace, RLE: Trace Neurological: Yes: Alert, Oriented Labs: CBC, BMP 02/03/18 06:50 02/03/18 06:50 Imaging - Results Chest X-ray: Report Reviewed, Image Reviewed (no acute changes) Problem List - Problems (1) Urinary tract infection Code(s): N39.0 - URINARY TRACT INFECTION, SITE NOT SPECIFIED Qualifiers: Urinary tract infection type: site unspecified Hematuria presence: without hematuria Qualified Code(s): N39.0 - Urinary tract infection, site not specified (2) Blocked suprapubic catheter Code(s): T83.090A - [facility] COMPL OF CYSTOSTOMY CATHETER, INITIAL ENCOUNTER (3) Dehydration Code(s): E86.0 - DEHYDRATION (4) Prostate cancer metastatic to bone Code(s): C61 - MALIGNANT NEOPLASM OF PROSTATE; C79.51 - SECONDARY MALIGNANT NEOPLASM OF BONE Assessment/Plan UTI/clogged SPT doing poorly prior cultures with pseudomonas, will switch to cefepime family at bedside requesting help with pain management, home care ?advanced directives??
[2018-02-03] MEDS: ACETAMINOPHEN 325 MG TABLET (FP) PO PRN (17:35)
[2018-02-03] MEDS: SODIUM CHLORIDE 1,000 ML IV SCH (17:36)
[2018-02-03] MEDS ORDERED: DEXTROSE 5%-WATER 100 ML IVPB ONE (21:22)
[2018-02-03] MEDS ORDERED: CEFEPIME HCL 1 GM VIAL (RESTRICTED TO ID) ONE (21:22)
[2018-02-03] MEDS: CEFEPIME 1 GM in DEXTROSE 5%-WATER 100 ML IVPB SCH (21:43)
[2018-02-03] MEDS: ATORVASTATIN CA 20 MG TABLET (FP) PO SCH (21:44)
[2018-02-03] MEDS ORDERED: metoPROLOL SUCCINATE 25 MG TAB.SR.24H (FP) PO ONE (23:45)
[2018-02-04] MEDS: morphine SULFATE 4 MG/ML VIAL IVPUSH PRN (00:23)
[2018-02-04] MEDS: ACETAMINOPHEN 325 MG TABLET (FP) PO PRN (03:14)
[2018-02-04 04:15] VITALS: BMI 24.2
[2018-02-04 08:34] LABS: HEMATOCRIT 29.1 % (35.4-49); HEMOGLOBIN 9.6 GM/dL (11.7-16.9); MCH 30.6 pg (25.7-33.7); MCHC 32.8 g/dl (32.0-35.9); MEAN CELL VOLUME 93.2 fl (80-96); MEAN PLT VOLUME 7.6 fl (7.5-11.1); PLATELET COUNT 211 K/MM3 (134-434); RBC 3.12 M/mm3 (4.00-5.60); RDW 14.7 % (11.9-15.9); WHITE BLOOD COUNT 4.4 K/mm3 (4.0-10.0)
[2018-02-04] MEDS ORDERED: CEFEPIME HCL 1 GM VIAL (RESTRICTED TO ID) ONE ×2 (08:52→21:27)
[2018-02-04] MEDS ORDERED: DEXTROSE 5%-WATER 100 ML IVPB ONE ×2 (08:52→21:27)
[2018-02-04 08:54] LABS: ANION GAP 8 MMOL/L (8-16); BLOOD UREA NITROGEN 7 mg/dL (7-18); CALCIUM 7.6 mg/dL (8.5-10.1); CHLORIDE 108 mmol/L (98-107); CO2 24 mmol/L (21-32); CREATININE 0.4 mg/dL (0.55-1.3); GLUCOSE,RANDOM 111 mg/dL (74-106); LDH 178 U/L (87-246); MAGNESIUM 2.1 mg/dL (1.8-2.4); POTASSIUM 3.4 mmol/L (3.5-5.1); SODIUM 140 mmol/L (136-145)
[2018-02-04] MEDS: CEFEPIME 1 GM in DEXTROSE 5%-WATER 100 ML IVPB SCH ×2 (09:05→21:30)
[2018-02-04] MEDS ORDERED: POTASSIUM CHLORIDE TABS 20 MEQ TABLET.ER (FP) PO ONE (10:19)
--- NOTE | 2018-02-04 10:50 | PN ---
Progress Note, Physician History of Present Illness: Pt w/o SOB, CP, palpitations,abd pain, N, V, diarrhea. Pt w/o hips or legs pain now or when standing/ sitting; pt was pain with movements. - Current Medication List Current Medications: Active Medications Acetaminophen (Tylenol -) 650 mg PO Q6H PRN PRN Reason: PAIN LEVEL 1-3 Last Admin: 02/04/18 03:14 Dose: 650 mg Atorvastatin Calcium (Lipitor -) 20 mg PO HS [facility] Last Admin: 02/03/18 21:44 Dose: 20 mg Sodium Chloride (Normal Saline -) 1,000 mls @ 50 mls/hr IV ASDIR [facility] Last Admin: 02/03/18 17:36 Dose: 50 mls/hr Cefepime HCl 1 gm/ Dextrose 100 mls @ 100 mls/hr IVPB BID [facility]; Protocol Last Admin: 02/04/18 09:05 Dose: 100 mls/hr Metoprolol Tartrate (Lopressor -) 25 mg PO BID [facility] Morphine Sulfate (Morphine Sulfate) 2 mg IVPUSH Q3H PRN PRN Reason: PAIN LEVEL 4 - 6 Last Admin: 02/04/18 00:23 Dose: 2 mg Potassium Chloride (K-Dur -) 20 meq PO DAILY [facility] - Objective Vital Signs: Vital Signs Temperature 98.3 F 02/04/18 09:06 Pulse Rate 97 H 02/04/18 09:06 Respiratory Rate 18 02/04/18 09:06 Blood Pressure 127/60 02/04/18 09:06 O2 Sat by Pulse Oximetry (%) 97 02/03/18 21:00 Constitutional: Yes: No Distress, Calm Cardiovascular: Yes: Regular Rate and Rhythm, S1, S2 Respiratory: Yes: Regular, CTA Bilaterally. No: Rales Gastrointestinal: Yes: Normal Bowel Sounds, Soft. No: Tenderness Edema: No Neurological: Yes: Alert, Oriented Labs: CBC, BMP 02/04/18 06:00 02/04/18 06:00 INR, PTT INR 4.03 (0.83-1.09) H* 02/03/18 06:50 Problem List - Problems (1) Weakness Code(s): R53.1 - WEAKNESS (2) Dehydration Code(s): E86.0 - DEHYDRATION (3) Prostate cancer metastatic to bone Code(s): C61 - MALIGNANT NEOPLASM OF PROSTATE; C79.51 - SECONDARY MALIGNANT NEOPLASM OF BONE (4) Urinary tract infection Code(s): N39.0 - URINARY TRACT INFECTION, SITE NOT SPECIFIED Qualifiers: Urinary tract infection type: site unspecified Hematuria presence: without hematuria Qualified Code(s): N39.0 - Urinary tract infection, site not specified (5) Suprapubic catheter Code(s): Z93.59 - OTHER CYSTOSTOMY STATUS (6) Blocked suprapubic catheter Code(s): T83.090A - [facility] COMPL OF CYSTOSTOMY CATHETER, INITIAL ENCOUNTER (7) Atrial fibrillation Code(s): I48.91 - UNSPECIFIED ATRIAL FIBRILLATION (8) Supratherapeutic INR Code(s): R79.1 - ABNORMAL COAGULATION PROFILE (9) Hyperlipidemia Code(s): E78.5 - HYPERLIPIDEMIA, UNSPECIFIED (10) Anemia Code(s): D64.9 - ANEMIA, UNSPECIFIED (11) Hypokalemia Code(s): E87.6 - HYPOKALEMIA Assessment/Plan To DC IVF Cont IV antibiotic H/ H is stable. To f/u Iron studies. To monitor INR. ID consult is appreciated. To f/u Cx Pain med AM labs
[2018-02-04] MEDS ORDERED: oxyCODONE HCL 5 MG TABLET PO PRN (11:00)
[2018-02-04] MEDS: METOPROLOL TARTRATE 25 MG TABLET (FP) PO SCH ×2 (11:12→21:29)
[2018-02-04] MEDS: oxyCODONE HCL 5 MG TABLET PO SCH ×2 (11:14→21:29)
[2018-02-04] MEDS ORDERED: NYSTATIN POWDER 100,000 UNITS/GM - 15 GM TOPICAL POWDER TP SCH (11:15)
[2018-02-04 12:13] LABS: INR 2.99 (0.83-1.09); PROTHROMBIN TIME (PATIENT) 35.7 SEC (9.7-13.0)
[2018-02-04] MEDS: SODIUM CHLORIDE 1,000 ML IV SCH (17:10)
[2018-02-04] MEDS ORDERED: WARFARIN NA 2.5 MG TABLET (FP) PO ONE (18:15)
[2018-02-04] MEDS: ATORVASTATIN CA 20 MG TABLET (FP) PO SCH (21:29)
[2018-02-05] MEDS: morphine SULFATE 4 MG/ML VIAL IVPUSH PRN ×3 (01:54→21:27)
[2018-02-05 06:06] LABS: SERUM IRON SATURATION 27 % (15-55); TOTAL IRON BINDING CAPACITY 142 ug/dL (250-450); UIBC 104 ug/dL (111-343)
[2018-02-05 08:10] LABS: HEMATOCRIT 29.2 % (35.4-49); HEMOGLOBIN 10.1 GM/dL (11.7-16.9); MCH 32.1 pg (25.7-33.7); MCHC 34.5 g/dl (32.0-35.9); MEAN PLT VOLUME 7.6 fl (7.5-11.1); PLATELET COUNT 226 K/MM3 (134-434); RBC 3.14 M/mm3 (4.00-5.60); WHITE BLOOD COUNT 3.5 K/mm3 (4.0-10.0)
[2018-02-05 08:20] LABS: INR 2.51 (0.83-1.09); PROTHROMBIN TIME (PATIENT) 29.9 SEC (9.7-13.0)
[2018-02-05 08:36] LABS: ANION GAP 8 MMOL/L (8-16); BLOOD UREA NITROGEN 8 mg/dL (7-18); CALCIUM 7.7 mg/dL (8.5-10.1); CHLORIDE 108 mmol/L (98-107); CO2 24 mmol/L (21-32); CREATININE 0.5 mg/dL (0.55-1.3); GLUCOSE,RANDOM 106 mg/dL (74-106); SODIUM 140 mmol/L (136-145)
[2018-02-05] MEDS ORDERED: DEXTROSE 5%-WATER 100 ML IVPB ONE (10:33)
[2018-02-05] MEDS ORDERED: CEFEPIME HCL 1 GM VIAL (RESTRICTED TO ID) ONE (10:33)
[2018-02-05] MEDS: METOPROLOL TARTRATE 25 MG TABLET (FP) PO SCH ×2 (10:39→21:26)
[2018-02-05] MEDS: oxyCODONE HCL 5 MG TABLET PO SCH ×2 (10:39→17:37)
[2018-02-05] MEDS: CEFEPIME 1 GM in DEXTROSE 5%-WATER 100 ML IVPB SCH (10:40)
[2018-02-05] MEDS: POTASSIUM CHLORIDE TABS 20 MEQ TABLET.ER (FP) PO SCH (10:41)
--- NOTE | 2018-02-05 11:19 | PN ---
Progress Note, Physician History of Present Illness: Pt w/o fever, chills, SOB, CP, palpitations,abd pain, N, V, diarrhea. Pt w/o hips or legs pain now or when standing/ sitting; pt was pain with movements. Pt received IV Morphine today. Pt states that he is confused to place, for few minutes, every day when he wake up. - Current Medication List Current Medications: Active Medications Acetaminophen (Tylenol -) 650 mg PO Q6H PRN PRN Reason: PAIN LEVEL 1-3 Last Admin: 02/04/18 03:14 Dose: 650 mg Atorvastatin Calcium (Lipitor -) 20 mg PO HS [facility] Last Admin: 02/04/18 21:29 Dose: 20 mg Sodium Chloride (Normal Saline -) 1,000 mls @ 50 mls/hr IV ASDIR [facility] Last Admin: 02/04/18 17:10 Dose: 50 mls/hr Cefepime HCl 1 gm/ Dextrose 100 mls @ 100 mls/hr IVPB BID [facility]; Protocol Last Admin: 02/05/18 10:40 Dose: 100 mls/hr Metoprolol Tartrate (Lopressor -) 25 mg PO BID [facility] Last Admin: 02/05/18 10:39 Dose: 25 mg Morphine Sulfate (Morphine Sulfate) 2 mg IVPUSH Q3H PRN PRN Reason: PAIN LEVEL 4 - 6 Last Admin: 02/05/18 05:49 Dose: 2 mg Oxycodone HCl (Roxicodone -) 10 mg PO BID [facility] Last Admin: 02/05/18 10:39 Dose: 10 mg Potassium Chloride (K-Dur -) 20 meq PO DAILY [facility] Last Admin: 02/05/18 10:41 Dose: 20 meq - Objective Vital Signs: Vital Signs Temperature 98.3 F 02/05/18 09:01 Pulse Rate 89 02/05/18 09:01 Respiratory Rate 20 02/05/18 09:01 Blood Pressure 129/67 02/05/18 09:01 O2 Sat by Pulse Oximetry (%) 96 02/04/18 21:00 Constitutional: Yes: No Distress, Calm Cardiovascular: Yes: Regular Rate and Rhythm, S1, S2 Respiratory: Yes: Regular, CTA Bilaterally. No: Wheezes Gastrointestinal: Yes: Normal Bowel Sounds, Soft. No: Tenderness Edema: No Neurological: Yes: Alert, Oriented (now) Labs: CBC, BMP 02/05/18 07:00 02/05/18 07:00 INR, PTT INR 2.51 (0.83-1.09) H 02/05/18 07:00 UCX was noted: multiple organism Problem List - Problems (1) Weakness Code(s): R53.1 - WEAKNESS (2) Dehydration Code(s): E86.0 - DEHYDRATION (3) Prostate cancer metastatic to bone Code(s): C61 - MALIGNANT NEOPLASM OF PROSTATE; C79.51 - SECONDARY MALIGNANT NEOPLASM OF BONE (4) Urinary tract infection Code(s): N39.0 - URINARY TRACT INFECTION, SITE NOT SPECIFIED Qualifiers: Urinary tract infection type: site unspecified Hematuria presence: without hematuria Qualified Code(s): N39.0 - Urinary tract infection, site not specified (5) Suprapubic catheter Code(s): Z93.59 - OTHER CYSTOSTOMY STATUS (6) Blocked suprapubic catheter Code(s): T83.090A - [facility] COMPL OF CYSTOSTOMY CATHETER, INITIAL ENCOUNTER (7) Atrial fibrillation Code(s): I48.91 - UNSPECIFIED ATRIAL FIBRILLATION (8) Supratherapeutic INR Code(s): R79.1 - ABNORMAL COAGULATION PROFILE (9) Hyperlipidemia Code(s): E78.5 - HYPERLIPIDEMIA, UNSPECIFIED (10) Anemia Code(s): D64.9 - ANEMIA, UNSPECIFIED (11) Hypokalemia Code(s): E87.6 - HYPOKALEMIA Assessment/Plan To DC IVF Cont IV antibiotic -to f/u with ID To increase Oxycodone To f/u Iron studies. To monitor INR. ID consult is appreciated. AM labs
--- NOTE | 2018-02-05 14:17 | PN ---
Progress Note (short form) - Note Progress Note: alert, no complaints Vital Signs Period Temp Pulse Resp BP Sys/Hanna Pulse Ox Last 24 Hr 98.0 F-98.5 F 89-104 18-20 107-132/63-69 96 cor-rrr lungs- clear abd soft,nt +SPT ext no edema CBC, BMP 02/05/18 07:00 02/05/18 07:00 Microbiology 02/02/18 13:54 Blood - Peripheral Venous Blood Culture - Preliminary NO GROWTH OBTAINED AFTER 72 HOURS, INCUBATION TO CONTINUE FOR 2 DAYS. 02/02/18 13:54 Blood - Peripheral Venous Blood Culture - Preliminary NO GROWTH OBTAINED AFTER 72 HOURS, INCUBATION TO CONTINUE FOR 2 DAYS. 02/02/18 16:37 Urine - Urine Suprapubic Urine Culture - Preliminary Pseudomonas Aeruginosa Pseudomonas Aeruginosa#2 Staphylococcus Aureus Group D Strep Or Entero Coccus a/p clogged SPT replaced- draining well now will d/c antibiotics metastatic prostate cancer management per PMD please call back if needed Problem List - Problems (1) Urinary tract infection Code(s): N39.0 - URINARY TRACT INFECTION, SITE NOT SPECIFIED Qualifiers: Urinary tract infection type: site unspecified Hematuria presence: without hematuria Qualified Code(s): N39.0 - Urinary tract infection, site not specified (2) Blocked suprapubic catheter Code(s): T83.090A - [facility] COMPL OF CYSTOSTOMY CATHETER, INITIAL ENCOUNTER (3) Dehydration Code(s): E86.0 - DEHYDRATION (4) Prostate cancer metastatic to bone Code(s): C61 - MALIGNANT NEOPLASM OF PROSTATE; C79.51 - SECONDARY MALIGNANT NEOPLASM OF BONE
[2018-02-05] MEDS: SODIUM CHLORIDE 1,000 ML IV SCH ×2 (15:06→19:25)
[2018-02-05] MEDS ORDERED: WARFARIN NA 3 MG TABLET PO ONE ×2 (18:00→19:00)
[2018-02-05] MEDS: ATORVASTATIN CA 20 MG TABLET (FP) PO SCH (21:26)
[2018-02-05] MEDS ORDERED: MORPHINE SULFATE 2 MG/ML VIAL IVPUSH PRN (22:10)
[2018-02-06] MEDS: oxyCODONE HCL 5 MG TABLET PO SCH ×3 (06:06→21:56)
[2018-02-06 08:18] LABS: INR 2.1 (0.83-1.09)
[2018-02-06 08:47] LABS: ANION GAP 9 MMOL/L (8-16); BLOOD UREA NITROGEN 14 mg/dL (7-18); CALCIUM 7.8 mg/dL (8.5-10.1); CHLORIDE 109 mmol/L (98-107); CO2 25 mmol/L (21-32); CREATININE 0.6 mg/dL (0.55-1.3); GLUCOSE,RANDOM 102 mg/dL (74-106); POTASSIUM 4.3 mmol/L (3.5-5.1); SODIUM 143 mmol/L (136-145)
[2018-02-06] MEDS: POTASSIUM CHLORIDE TABS 20 MEQ TABLET.ER (FP) PO SCH (10:07)
[2018-02-06] MEDS: METOPROLOL TARTRATE 25 MG TABLET (FP) PO SCH ×2 (10:07→21:56)
--- NOTE | 2018-02-06 11:49 | PN ---
Progress Note, Physician History of Present Illness: Pt w/o fever, chills, SOB, CP, palpitations,abd pain, N, V, diarrhea. Pt w/o hips or legs pain now or when standing/ sitting. - Current Medication List Current Medications: Active Medications Acetaminophen (Tylenol -) 650 mg PO Q6H PRN PRN Reason: PAIN LEVEL 1-3 Last Admin: 02/04/18 03:14 Dose: 650 mg Atorvastatin Calcium (Lipitor -) 20 mg PO HS [facility] Last Admin: 02/05/18 21:26 Dose: 20 mg Sodium Chloride (Normal Saline -) 1,000 mls @ 50 mls/hr IV ASDIR [facility] Last Admin: 02/05/18 19:25 Dose: Not Given Metoprolol Tartrate (Lopressor -) 25 mg PO BID [facility] Last Admin: 02/06/18 10:07 Dose: 25 mg Morphine Sulfate (Morphine Sulfate) 2 mg IVPUSH Q3H PRN PRN Reason: PAIN LEVEL 4 - 6 Oxycodone HCl (Roxicodone -) 10 mg PO TID [facility] Last Admin: 02/06/18 06:06 Dose: 10 mg Potassium Chloride (K-Dur -) 20 meq PO DAILY [facility] Last Admin: 02/06/18 10:07 Dose: 20 meq - Objective Vital Signs: Vital Signs Temperature 98.4 F 02/06/18 04:55 Pulse Rate 86 02/06/18 04:55 Respiratory Rate 18 02/06/18 04:55 Blood Pressure 117/59 L 02/06/18 04:55 O2 Sat by Pulse Oximetry (%) 97 02/05/18 21:00 Constitutional: Yes: No Distress, Calm Cardiovascular: Yes: Regular Rate and Rhythm, S1, S2 Respiratory: Yes: Regular, CTA Bilaterally. No: Rales Gastrointestinal: Yes: Normal Bowel Sounds, Soft. No: Tenderness Edema: No Neurological: Yes: Alert, Oriented Labs: CBC, BMP 02/05/18 07:00 02/06/18 07:15 INR, PTT INR 2.10 (0.83-1.09) H 02/06/18 07:15 Problem List - Problems (1) Weakness Code(s): R53.1 - WEAKNESS (2) Dehydration Code(s): E86.0 - DEHYDRATION (3) Prostate cancer metastatic to bone Code(s): C61 - MALIGNANT NEOPLASM OF PROSTATE; C79.51 - SECONDARY MALIGNANT NEOPLASM OF BONE (4) Urinary tract infection Code(s): N39.0 - URINARY TRACT INFECTION, SITE NOT SPECIFIED Qualifiers: Urinary tract infection type: site unspecified Hematuria presence: without hematuria Qualified Code(s): N39.0 - Urinary tract infection, site not specified (5) Suprapubic catheter Code(s): Z93.59 - OTHER CYSTOSTOMY STATUS (6) Blocked suprapubic catheter Code(s): T83.090A - [facility] COMPL OF CYSTOSTOMY CATHETER, INITIAL ENCOUNTER (7) Atrial fibrillation Code(s): I48.91 - UNSPECIFIED ATRIAL FIBRILLATION (8) Supratherapeutic INR Code(s): R79.1 - ABNORMAL COAGULATION PROFILE (9) Hyperlipidemia Code(s): E78.5 - HYPERLIPIDEMIA, UNSPECIFIED (10) Anemia Code(s): D64.9 - ANEMIA, UNSPECIFIED (11) Hypokalemia Code(s): E87.6 - HYPOKALEMIA Assessment/Plan Off antibiotic. To cont Oxycodone To f/u Iron studies. To monitor INR. ID consult and f/u are appreciated. AM labs
[2018-02-06] MEDS: SODIUM CHLORIDE 1,000 ML IV SCH (14:23)
[2018-02-06] MEDS: ATORVASTATIN CA 20 MG TABLET (FP) PO SCH (21:57)
[2018-02-07] MEDS: oxyCODONE HCL 5 MG TABLET PO SCH ×4 (06:11→18:46)
[2018-02-07 08:17] LABS: HEMATOCRIT 30.1 % (35.4-49); HEMOGLOBIN 9.6 GM/dL (11.7-16.9); MCH 29.8 pg (25.7-33.7); MCHC 31.8 g/dl (32.0-35.9); MEAN CELL VOLUME 93.6 fl (80-96); MEAN PLT VOLUME 7.3 fl (7.5-11.1); PLATELET COUNT 184 K/MM3 (134-434); RBC 3.22 M/mm3 (4.00-5.60); RDW 15.2 % (11.9-15.9); WHITE BLOOD COUNT 5.5 K/mm3 (4.0-10.0)
[2018-02-07 08:30] LABS: ANION GAP 10 MMOL/L (8-16); BLOOD UREA NITROGEN 12 mg/dL (7-18); CALCIUM 7.8 mg/dL (8.5-10.1); CHLORIDE 105 mmol/L (98-107); CO2 25 mmol/L (21-32); CREATININE 0.5 mg/dL (0.55-1.3); GLUCOSE,RANDOM 118 mg/dL (74-106); SODIUM 140 mmol/L (136-145)
[2018-02-07 08:45] LABS: INR 1.59 (0.83-1.09); PROTHROMBIN TIME (PATIENT) 18.8 SEC (9.7-13.0)
[2018-02-07] MEDS: POTASSIUM CHLORIDE TABS 20 MEQ TABLET.ER (FP) PO SCH (09:45)
[2018-02-07] MEDS: METOPROLOL TARTRATE 25 MG TABLET (FP) PO SCH ×2 (09:45→21:42)
--- NOTE | 2018-02-07 13:59 | PN ---
Progress Note, Physician History of Present Illness: Pt w/o fever, chills, SOB, CP, palpitations,abd pain, N, V, diarrhea. Pt w/o hips or legs pain when moving in the bed (confirmed by his nurse). - Current Medication List Current Medications: Active Medications Acetaminophen (Tylenol -) 650 mg PO Q6H PRN PRN Reason: PAIN LEVEL 1-3 Last Admin: 02/04/18 03:14 Dose: 650 mg Atorvastatin Calcium (Lipitor -) 20 mg PO HS [facility] Last Admin: 02/06/18 21:57 Dose: 20 mg Sodium Chloride (Normal Saline -) 1,000 mls @ 50 mls/hr IV ASDIR [facility] Last Admin: 02/06/18 14:23 Dose: 50 mls/hr Metoprolol Tartrate (Lopressor -) 25 mg PO BID [facility] Last Admin: 02/07/18 09:45 Dose: 25 mg Morphine Sulfate (Morphine Sulfate) 2 mg IVPUSH Q3H PRN PRN Reason: PAIN LEVEL 4 - 6 Last Admin: 02/07/18 09:45 Dose: 2 mg Oxycodone HCl (Roxicodone -) 10 mg PO TID [facility] Last Admin: 02/07/18 06:11 Dose: 10 mg Potassium Chloride (K-Dur -) 20 meq PO DAILY [facility] Last Admin: 02/07/18 09:45 Dose: 20 meq Warfarin Sodium (Coumadin -) 7.5 mg PO ONCE@1800 ONE Stop: 02/07/18 18:01 Warfarin Sodium (Coumadin -) 3 mg PO DAILY@1800 [facility] - Objective Vital Signs: Vital Signs Temperature 99.0 F 02/07/18 06:29 Pulse Rate 93 H 02/07/18 06:29 Respiratory Rate 20 02/07/18 06:29 Blood Pressure 152/79 02/07/18 06:29 O2 Sat by Pulse Oximetry (%) 95 02/06/18 21:00 Constitutional: Yes: No Distress, Calm Cardiovascular: Yes: Regular Rate and Rhythm, S1, S2 Respiratory: Yes: Regular, Other (coarse BS bilat) Gastrointestinal: Yes: Normal Bowel Sounds, Soft. No: Tenderness Edema: No Neurological: Yes: Alert, Oriented Labs: CBC, BMP 02/07/18 07:15 02/07/18 07:15 INR, PTT INR 1.59 (0.83-1.09) H 02/07/18 07:15 Problem List - Problems (1) Weakness Code(s): R53.1 - WEAKNESS (2) Dehydration Code(s): E86.0 - DEHYDRATION (3) Prostate cancer metastatic to bone Code(s): C61 - MALIGNANT NEOPLASM OF PROSTATE; C79.51 - SECONDARY MALIGNANT NEOPLASM OF BONE (4) Urinary tract infection Code(s): N39.0 - URINARY TRACT INFECTION, SITE NOT SPECIFIED Qualifiers: Urinary tract infection type: site unspecified Hematuria presence: without hematuria Qualified Code(s): N39.0 - Urinary tract infection, site not specified (5) Suprapubic catheter Code(s): Z93.59 - OTHER CYSTOSTOMY STATUS (6) Blocked suprapubic catheter Code(s): T83.090A - [facility] COMPL OF CYSTOSTOMY CATHETER, INITIAL ENCOUNTER (7) Atrial fibrillation Code(s): I48.91 - UNSPECIFIED ATRIAL FIBRILLATION (8) Supratherapeutic INR Code(s): R79.1 - ABNORMAL COAGULATION PROFILE (9) Hyperlipidemia Code(s): E78.5 - HYPERLIPIDEMIA, UNSPECIFIED (10) Anemia Code(s): D64.9 - ANEMIA, UNSPECIFIED (11) Hypokalemia Code(s): E87.6 - HYPOKALEMIA Assessment/Plan Off antibiotic. To increase Oxycodone to Q6H Iron studies suggesting anemia of chronic disease. To monitor INR. ID consult and f/u are appreciated. AM labs
[2018-02-07] MEDS ORDERED: WARFARIN NA 7.5 MG TABLET (FP) PO ONE (18:00)
[2018-02-07] MEDS: ATORVASTATIN CA 20 MG TABLET (FP) PO SCH (21:42)
[2018-02-08] MEDS: oxyCODONE HCL 5 MG TABLET PO SCH ×5 (00:12→23:33)
[2018-02-08 06:34] LABS: HEMATOCRIT 26.3 % (35.4-49); HEMOGLOBIN 8.6 GM/dL (11.7-16.9); MCH 30.6 pg (25.7-33.7); MCHC 32.8 g/dl (32.0-35.9); MEAN CELL VOLUME 93.2 fl (80-96); PLATELET COUNT 171 K/MM3 (134-434); RBC 2.82 M/mm3 (4.00-5.60); RDW 14.8 % (11.9-15.9); WHITE BLOOD COUNT 4.9 K/mm3 (4.0-10.0)
[2018-02-08 06:52] LABS: INR 1.46 (0.83-1.09); PROTHROMBIN TIME (PATIENT) 17.3 SEC (9.7-13.0)
[2018-02-08 07:08] LABS: ANION GAP 6 MMOL/L (8-16); BLOOD UREA NITROGEN 14 mg/dL (7-18); CALCIUM 7.9 mg/dL (8.5-10.1); CHLORIDE 104 mmol/L (98-107); CO2 28 mmol/L (21-32); CREATININE 0.5 mg/dL (0.55-1.3); GLUCOSE,RANDOM 115 mg/dL (74-106); POTASSIUM 4.1 mmol/L (3.5-5.1); SODIUM 138 mmol/L (136-145)
[2018-02-08] MEDS: ACETAMINOPHEN 325 MG TABLET (FP) PO PRN (09:23)
[2018-02-08] MEDS: METOPROLOL TARTRATE 25 MG TABLET (FP) PO SCH ×2 (09:23→21:04)
[2018-02-08] MEDS: POTASSIUM CHLORIDE TABS 20 MEQ TABLET.ER (FP) PO SCH (09:23)
[2018-02-08] MEDS: WARFARIN NA 3 MG TABLET PO SCH (17:35)
[2018-02-08] MEDS: ATORVASTATIN CA 20 MG TABLET (FP) PO SCH (21:04)
--- NOTE | 2018-02-09 00:22 | PN ---
Progress Note, Physician History of Present Illness: Pt w/o fever, chills, SOB, CP, palpitations,abd pain, N, V, diarrhea. Pt's hips or legs pain are better controlled with adjustment in Oxycodone (Q6H) , per pt and his AM nurse (Fany). Pt was seen in the morning; pt's nurse at bedside. - Current Medication List Current Medications: Active Medications Acetaminophen (Tylenol -) 650 mg PO Q6H PRN PRN Reason: PAIN LEVEL 1-3 Last Admin: 02/08/18 09:23 Dose: 650 mg Atorvastatin Calcium (Lipitor -) 20 mg PO HS [facility] Last Admin: 02/08/18 21:04 Dose: 20 mg Metoprolol Tartrate (Lopressor -) 25 mg PO BID [facility] Last Admin: 02/08/18 21:04 Dose: 25 mg Morphine Sulfate (Morphine Sulfate) 2 mg IVPUSH Q3H PRN PRN Reason: PAIN LEVEL 4 - 6 Last Admin: 02/07/18 09:45 Dose: 2 mg Oxycodone HCl (Roxicodone -) 10 mg PO Q6HPO [facility] Last Admin: 02/08/18 23:33 Dose: 10 mg Potassium Chloride (K-Dur -) 20 meq PO DAILY [facility] Last Admin: 02/08/18 09:23 Dose: 20 meq Warfarin Sodium (Coumadin -) 3 mg PO DAILY@1800 [facility] Last Admin: 02/08/18 17:35 Dose: 3 mg - Objective Vital Signs: Vital Signs Temperature 97.9 F 02/08/18 22:00 Pulse Rate 76 02/08/18 22:00 Respiratory Rate 20 02/08/18 22:00 Blood Pressure 128/68 02/08/18 22:00 O2 Sat by Pulse Oximetry (%) 95 02/08/18 22:00 Constitutional: Yes: No Distress Cardiovascular: Yes: Regular Rate and Rhythm, S1, S2 Respiratory: Yes: Regular, CTA Bilaterally. No: Rales Gastrointestinal: Yes: Normal Bowel Sounds, Soft. No: Tenderness Edema: No Neurological: Yes: Alert, Oriented Labs: CBC, BMP 02/08/18 06:20 02/08/18 06:20 INR, PTT INR 1.46 (0.83-1.09) H 02/08/18 06:20 Problem List - Problems (1) Weakness Code(s): R53.1 - WEAKNESS (2) Dehydration Code(s): E86.0 - DEHYDRATION (3) Prostate cancer metastatic to bone Code(s): C61 - MALIGNANT NEOPLASM OF PROSTATE; C79.51 - SECONDARY MALIGNANT NEOPLASM OF BONE (4) Urinary tract infection Code(s): N39.0 - URINARY TRACT INFECTION, SITE NOT SPECIFIED Qualifiers: Urinary tract infection type: site unspecified Hematuria presence: without hematuria Qualified Code(s): N39.0 - Urinary tract infection, site not specified (5) Suprapubic catheter Code(s): Z93.59 - OTHER CYSTOSTOMY STATUS (6) Blocked suprapubic catheter Code(s): T83.090A - [facility] COMPL OF CYSTOSTOMY CATHETER, INITIAL ENCOUNTER (7) Atrial fibrillation Code(s): I48.91 - UNSPECIFIED ATRIAL FIBRILLATION (8) Supratherapeutic INR Code(s): R79.1 - ABNORMAL COAGULATION PROFILE (9) Hyperlipidemia Code(s): E78.5 - HYPERLIPIDEMIA, UNSPECIFIED (10) Anemia Code(s): D64.9 - ANEMIA, UNSPECIFIED (11) Hypokalemia Code(s): E87.6 - HYPOKALEMIA (12) Subtherapeutic international normalized ratio (INR) Code(s): R79.1 - ABNORMAL COAGULATION PROFILE Assessment/Plan Off antibiotic. Oxycodone Q6H with better pain control w/o sedation. To recall PT (i d/w pt and his nurse) Iron studies suggesting anemia of chronic disease. Extra Coumadin To monitor INR. ID consult and f/u are appreciated. AM labs
[2018-02-09] MEDS ORDERED: WARFARIN NA 3 MG TABLET PO ONE (00:27)
[2018-02-09] MEDS: oxyCODONE HCL 5 MG TABLET PO SCH ×3 (06:08→17:23)
[2018-02-09 08:11] LABS: HEMATOCRIT 26.1 % (35.4-49); HEMOGLOBIN 9.1 GM/dL (11.7-16.9); MCH 32.2 pg (25.7-33.7); MCHC 34.8 g/dl (32.0-35.9); MEAN CELL VOLUME 92.7 fl (80-96); MEAN PLT VOLUME 7.4 fl (7.5-11.1); PLATELET COUNT 194 K/MM3 (134-434); RBC 2.81 M/mm3 (4.00-5.60); RDW 15.2 % (11.9-15.9); WHITE BLOOD COUNT 4.3 K/mm3 (4.0-10.0)
[2018-02-09 08:21] LABS: INR 1.54 (0.83-1.09); PROTHROMBIN TIME (PATIENT) 18.3 SEC (9.7-13.0)
[2018-02-09 08:46] LABS: ANION GAP 5 MMOL/L (8-16); BLOOD UREA NITROGEN 18 mg/dL (7-18); CALCIUM 7.8 mg/dL (8.5-10.1); CHLORIDE 104 mmol/L (98-107); CO2 30 mmol/L (21-32); CREATININE 0.5 mg/dL (0.55-1.3); GLUCOSE,RANDOM 112 mg/dL (74-106); POTASSIUM 4.3 mmol/L (3.5-5.1); SODIUM 139 mmol/L (136-145)
[2018-02-09] MEDS: POTASSIUM CHLORIDE TABS 20 MEQ TABLET.ER (FP) PO SCH (09:02)
[2018-02-09] MEDS: METOPROLOL TARTRATE 25 MG TABLET (FP) PO SCH ×2 (09:02→21:45)
--- NOTE | 2018-02-09 09:37 | PN ---
Progress Note, Physician History of Present Illness: Pt w/o fever, chills, SOB, CP, palpitations,abd pain, N, V, diarrhea. Pt's hips or legs pain are better controlled with adjustment in Oxycodone (Q6H) , per pt and his AM nurse. - Current Medication List Current Medications: Active Medications Acetaminophen (Tylenol -) 650 mg PO Q6H PRN PRN Reason: PAIN LEVEL 1-3 Last Admin: 02/08/18 09:23 Dose: 650 mg Atorvastatin Calcium (Lipitor -) 20 mg PO HS [facility] Last Admin: 02/08/18 21:04 Dose: 20 mg Metoprolol Tartrate (Lopressor -) 25 mg PO BID [facility] Last Admin: 02/09/18 09:02 Dose: 25 mg Morphine Sulfate (Morphine Sulfate) 2 mg IVPUSH Q3H PRN PRN Reason: PAIN LEVEL 4 - 6 Last Admin: 02/07/18 09:45 Dose: 2 mg Oxycodone HCl (Roxicodone -) 10 mg PO Q6HPO [facility] Last Admin: 02/09/18 06:08 Dose: 10 mg Potassium Chloride (K-Dur -) 20 meq PO DAILY [facility] Last Admin: 02/09/18 09:02 Dose: 20 meq Warfarin Sodium (Coumadin -) 3 mg PO DAILY@1800 [facility] Last Admin: 02/08/18 17:35 Dose: 3 mg - Objective Vital Signs: Vital Signs Temperature 97.6 F 02/09/18 06:44 Pulse Rate 88 02/09/18 06:44 Respiratory Rate 20 02/09/18 06:44 Blood Pressure 113/65 02/09/18 06:44 O2 Sat by Pulse Oximetry (%) 96 02/09/18 07:57 Constitutional: Yes: No Distress, Calm Cardiovascular: Yes: Regular Rate and Rhythm, S1, S2 Respiratory: Yes: Regular, CTA Bilaterally. No: Rales Gastrointestinal: Yes: Normal Bowel Sounds, Soft. 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 COMPL OF CYSTOSTOMY CATHETER, INITIAL ENCOUNTER (7) Atrial fibrillation Code(s): I48.91 - UNSPECIFIED ATRIAL FIBRILLATION (8) Supratherapeutic INR Code(s): R79.1 - ABNORMAL COAGULATION PROFILE (9) Hyperlipidemia Code(s): E78.5 - HYPERLIPIDEMIA, UNSPECIFIED (10) Anemia Code(s): D64.9 - ANEMIA, UNSPECIFIED (11) Hypokalemia Code(s): E87.6 - HYPOKALEMIA (12) Subtherapeutic international normalized ratio (INR) Code(s): R79.1 - ABNORMAL COAGULATION PROFILE Assessment/Plan Off antibiotic. Oxycodone Q6H with better pain control w/o sedation. PT Iron studies suggesting anemia of chronic disease. Extra Coumadin To monitor INR. ID consult and f/u are appreciated. AM labs
[2018-02-09] MEDS: WARFARIN NA 3 MG TABLET PO SCH (17:24)
[2018-02-09] MEDS: ACETAMINOPHEN 325 MG TABLET (FP) PO PRN (21:45)
[2018-02-09] MEDS: ATORVASTATIN CA 20 MG TABLET (FP) PO SCH (21:45)
[2018-02-10] MEDS: oxyCODONE HCL 5 MG TABLET PO SCH ×4 (01:46→17:49)
[2018-02-10 08:45] LABS: ANION GAP 6 MMOL/L (8-16); BLOOD UREA NITROGEN 21 mg/dL (7-18); CHLORIDE 104 mmol/L (98-107); CO2 30 mmol/L (21-32); CREATININE 0.5 mg/dL (0.55-1.3); GLUCOSE,RANDOM 113 mg/dL (74-106); POTASSIUM 4.5 mmol/L (3.5-5.1); SODIUM 140 mmol/L (136-145)
[2018-02-10] MEDS: POTASSIUM CHLORIDE TABS 20 MEQ TABLET.ER (FP) PO SCH (10:39)
[2018-02-10] MEDS: METOPROLOL TARTRATE 25 MG TABLET (FP) PO SCH ×2 (10:40→22:30)
--- NOTE | 2018-02-10 11:08 | PN ---
Progress Note, Physician History of Present Illness: Pt is sleepy, confirmed by his nurse. Pt w/o SOB, CP, palpitations,abd pain. Pt's w/o hips or legs pain. - Current Medication List Current Medications: Active Medications Acetaminophen (Tylenol -) 650 mg PO Q6H PRN PRN Reason: PAIN LEVEL 1-3 Last Admin: 02/09/18 21:45 Dose: 650 mg Atorvastatin Calcium (Lipitor -) 20 mg PO HS [facility] Last Admin: 02/09/18 21:45 Dose: 20 mg Metoprolol Tartrate (Lopressor -) 25 mg PO BID [facility] Last Admin: 02/10/18 10:40 Dose: 25 mg Oxycodone HCl (Roxicodone -) 10 mg PO Q6HPO [facility] Last Admin: 02/10/18 06:06 Dose: 10 mg Potassium Chloride (K-Dur -) 20 meq PO DAILY [facility] Last Admin: 02/10/18 10:39 Dose: 20 meq Warfarin Sodium (Coumadin -) 3 mg PO DAILY@1800 [facility] Last Admin: 02/09/18 17:24 Dose: 3 mg - Objective Vital Signs: Vital Signs Temperature 98.3 F 02/10/18 05:50 Pulse Rate 80 02/10/18 05:50 Respiratory Rate 20 02/10/18 05:50 Blood Pressure 113/53 L 02/10/18 05:50 O2 Sat by Pulse Oximetry (%) 97 02/09/18 21:00 Constitutional: Yes: No Distress, Calm Cardiovascular: Yes: Regular Rate and Rhythm, S1, S2 Respiratory: Yes: Regular, CTA Bilaterally. No: Rales Gastrointestinal: Yes: Normal Bowel Sounds, Soft. 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 Code(s): C61 - MALIGNANT NEOPLASM OF PROSTATE; C79.51 - SECONDARY MALIGNANT NEOPLASM OF BONE (4) Urinary tract infection Code(s): N39.0 - URINARY TRACT INFECTION, SITE NOT SPECIFIED Qualifiers: Urinary tract infection type: site unspecified Hematuria presence: without hematuria Qualified Code(s): N39.0 - Urinary tract infection, site not specified (5) Suprapubic catheter Code(s): Z93.59 - OTHER CYSTOSTOMY STATUS (6) Blocked suprapubic catheter Code(s): T83.090A - [facility] COMPL OF CYSTOSTOMY CATHETER, INITIAL ENCOUNTER (7) Atrial fibrillation Code(s): I48.91 - UNSPECIFIED ATRIAL FIBRILLATION (8) Supratherapeutic INR Code(s): R79.1 - ABNORMAL COAGULATION PROFILE (9) Hyperlipidemia Code(s): E78.5 - HYPERLIPIDEMIA, UNSPECIFIED (10) Anemia Code(s): D64.9 - ANEMIA, UNSPECIFIED (11) Hypokalemia Code(s): E87.6 - HYPOKALEMIA (12) Subtherapeutic international normalized ratio (INR) Code(s): R79.1 - ABNORMAL COAGULATION PROFILE Assessment/Plan Off antibiotic. Oxycodone Q6H with better pain control; to decreased dose secondary to sleepiness PT Iron studies suggesting anemia of chronic disease. Extra Coumadin To monitor INR. ID consult and f/u are appreciated. AM labs. Pt's condition was reviewed with his son, Joaquín; to try to transfer pt to rehab
[2018-02-10 13:19] LABS: HEMATOCRIT 27.7 % (35.4-49); HEMOGLOBIN 9.6 GM/dL (11.7-16.9); MCH 32.3 pg (25.7-33.7); MCHC 34.6 g/dl (32.0-35.9); MEAN CELL VOLUME 93.5 fl (80-96); MEAN PLT VOLUME 7.6 fl (7.5-11.1); PLATELET COUNT 222 K/MM3 (134-434); RBC 2.96 M/mm3 (4.00-5.60); WHITE BLOOD COUNT 4.3 K/mm3 (4.0-10.0)
[2018-02-10] MEDS ORDERED: POLYETHYLENE GLYCOL 3350 119 GM BTL PO ONE (13:28)
[2018-02-10 13:43] LABS: INR 1.55 (0.83-1.09); PROTHROMBIN TIME (PATIENT) 18.4 SEC (9.7-13.0)
[2018-02-10] MEDS: WARFARIN NA 3 MG TABLET PO SCH (17:49)
[2018-02-10] MEDS: ATORVASTATIN CA 20 MG TABLET (FP) PO SCH (22:30)
[2018-02-10] MEDS ORDERED: WARFARIN NA 3 MG TABLET PO ONE (23:38)
[2018-02-11] MEDS: oxyCODONE HCL 5 MG TABLET PO SCH ×4 (00:21→18:25)
[2018-02-11 08:22] LABS: ANION GAP 9 MMOL/L (8-16); BLOOD UREA NITROGEN 19 mg/dL (7-18); CALCIUM 7.8 mg/dL (8.5-10.1); CHLORIDE 107 mmol/L (98-107); CO2 27 mmol/L (21-32); CREATININE 0.5 mg/dL (0.55-1.3); GLUCOSE,RANDOM 131 mg/dL (74-106); MAGNESIUM 2.4 mg/dL (1.8-2.4); POTASSIUM 4.3 mmol/L (3.5-5.1); SODIUM 143 mmol/L (136-145)
--- NOTE | 2018-02-11 09:50 | PN ---
Progress Note, Physician History of Present Illness: Pt awake today, no hips or legs pain. Pt w/o SOB, CP, palpitations, abd pain. . - Current Medication List Current Medications: Active Medications Acetaminophen (Tylenol -) 650 mg PO Q6H PRN PRN Reason: PAIN LEVEL 1-3 Last Admin: 02/09/18 21:45 Dose: 650 mg Atorvastatin Calcium (Lipitor -) 20 mg PO HS [facility] Last Admin: 02/10/18 22:30 Dose: 20 mg Metoprolol Tartrate (Lopressor -) 25 mg PO BID [facility] Last Admin: 02/10/18 22:30 Dose: 25 mg Oxycodone HCl (Roxicodone -) 7.5 mg PO Q6HPO [facility] Last Admin: 02/11/18 06:08 Dose: 7.5 mg Potassium Chloride (K-Dur -) 20 meq PO DAILY [facility] Last Admin: 02/10/18 10:39 Dose: 20 meq - Objective Vital Signs: Vital Signs Temperature 98.1 F 02/11/18 05:45 Pulse Rate 77 02/11/18 05:45 Respiratory Rate 20 02/11/18 05:45 Blood Pressure 114/52 L 02/11/18 05:45 O2 Sat by Pulse Oximetry (%) 93 L 02/10/18 21:00 Constitutional: Yes: No Distress, Calm Cardiovascular: Yes: Regular Rate and Rhythm, S1, S2 Respiratory: Yes: Regular, CTA Bilaterally. No: Rales Gastrointestinal: Yes: Normal Bowel Sounds, Soft. 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 Code(s): C61 - MALIGNANT NEOPLASM OF PROSTATE; C79.51 - SECONDARY MALIGNANT NEOPLASM OF BONE (4) Urinary tract infection Code(s): N39.0 - URINARY TRACT INFECTION, SITE NOT SPECIFIED Qualifiers: Urinary tract infection type: site unspecified Hematuria presence: without hematuria Qualified Code(s): N39.0 - Urinary tract infection, site not specified (5) Suprapubic catheter Code(s): Z93.59 - OTHER CYSTOSTOMY STATUS (6) Blocked suprapubic catheter Code(s): T83.090A - [facility] COMPL OF CYSTOSTOMY CATHETER, INITIAL ENCOUNTER (7) Atrial fibrillation Code(s): I48.91 - UNSPECIFIED ATRIAL FIBRILLATION (8) Supratherapeutic INR Code(s): R79.1 - ABNORMAL COAGULATION PROFILE (9) Hyperlipidemia Code(s): E78.5 - HYPERLIPIDEMIA, UNSPECIFIED (10) Anemia Code(s): D64.9 - ANEMIA, UNSPECIFIED (11) Hypokalemia Code(s): E87.6 - HYPOKALEMIA (12) Subtherapeutic international normalized ratio (INR) Code(s): R79.1 - ABNORMAL COAGULATION PROFILE Assessment/Plan Off antibiotic. Oxycodone Q6H with better pain control; oxycodone dose was decreased PT Iron studies suggesting anemia of chronic disease. Extra Coumadin today; daily dose was increased, To monitor INR. ID consult and f/u are appreciated. AM labs. Pt's son wants [facility], bed is pending
[2018-02-11] MEDS: METOPROLOL TARTRATE 25 MG TABLET (FP) PO SCH (10:25)
[2018-02-11] MEDS: POTASSIUM CHLORIDE TABS 20 MEQ TABLET.ER (FP) PO SCH (10:25)
[2018-02-11 14:58] VITALS: BP 122/61; PULSE 84; TEMP 98
[2018-02-11] MEDS ORDERED: WARFARIN NA 5 MG TABLET (UD) PO SCH (18:00)
[2018-02-11] MEDS ORDERED: WARFARIN NA 3 MG TABLET PO ONE (18:00)
== END 2018-02-11 19:08 | DRG 699 ==
LOC: JER 11:39 → JERBED 14:15 → J6S 18:15
PROVIDERS: ADMIT Internal Medicine; ATTEND Internal Medicine
PROC: 0T2BX0Z Change Drainage Device in Bladder, External Approach (ICD-10-PCS; principal; 2018-02-02)
DX: T83.090A Other mechanical complication of cystostomy catheter, initial encounter (principal); N39.0 Urinary tract infection, site not specified; R64 Cachexia; C79.51 Secondary malignant neoplasm of bone; E87.2 Acidosis; C61 Malignant neoplasm of prostate; R53.1 Weakness; E78.5 Hyperlipidemia, unspecified; I48.91 Unspecified atrial fibrillation; Z68.24 Body mass index [BMI] 24.0-24.9, adult; E86.0 Dehydration; R33.9 Retention of urine, unspecified; R79.1 Abnormal coagulation profile; D64.9 Anemia, unspecified; E87.6 Hypokalemia; Z85.46 Personal history of malignant neoplasm of prostate; Z96.643 Presence of artificial hip joint, bilateral; Z86.73 Personal history of transient ischemic attack (TIA), and cerebral infarction without residual deficits; Z93.59 Other cystostomy status
CPT/HCPCS: 36415; 71045-TC-FY; 80048; 80053; 81003; 81015; 82550; 82607; 82746; 83540; 83550; 83605; 83615; 83735; 84484; 85025; 85027; 85044; 85610; 85730; 87040; 87086; 87186; 93005; 93010; 97116-GP; 97162-GP; 99285-25; J7030